=== PATIENT | male | born 1930 | race Caucasian/White ===

== ENCOUNTER 2017-03-11 10:52 | Emergency (ER) | payer MEDICARE ==
[~2017-03-11] VITALS: Ht 175.3 cm; Wt 77.3 kg
[~2017-03-11 10:52] MED LIST: ACET-171 PO; ANTI1CAP2 PO; CALC500T9 PO; CHOL100045 PO; DILT180C66 PO; DOCU250C2 PO; METO100T3 PO; OMEP20TA86 PO; OXYC1TAB24 PO; OXYC5TAB72 PO; POLY17PO6 PO; POTA15TA2 PO; SENN8.6C6 PO; TAMS0.4C29 PO; WARF5TAB7 PO; ZYL100 PO
[2017-03-11 10:56] VITALS: BP 122/68; PULSE 82; RESP 16; O2SAT 94
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
[2017-03-11 11:37] LABS: BASOPHILS % (AUTO) 0.2 % (0-3); EOSINOPHILS % (AUTO) 2.4 % (0-5); MONOCYTES % (AUTO) 10.3 % (4-12); Mean Corpuscular Hemoglobin 26.4 pg (27.0-35.0); Mean Corpuscular Volume 85.2 fL (81-100); NEUTROPHILS % (AUTO) 75.8 % (40-74); Platelet Count 135 bil/L (150-400)
[2017-03-11 11:54] LABS: INR 2.04 ratio
--- NOTE | 2017-03-11 11:55 | DRSVH ---
PROCEDURE: X-RAY CHEST ONE VIEW, PORTABLE ([id number]) INDICATIONS: ams TECHNIQUE: One view of the chest was acquired. COMPARISON: [facility], CT, CT CHEST W CON, 07/11/2015, 16:21. [facility], CR, XR CHEST 2VW, 11/11/2016, 9:48. [facility], CR, XR CHEST 1VW (PORTABLE), 02/27/2016, 1 4:09. FINDINGS: Surgical changes and devices: None. Lungs and pleura: The medial left lung apex is obscured by patient's neck soft tissues. There is a persistent small left pleural effusion which appears similar to the prior studies. Mild interstitial prominence is redemonstrated as well as linear opacities likely representing scarring. There is no definite acute consolidation. Mediastinum: Mediastinal contours appear unchanged. Heart size is at the upper limits of normal. Bones and chest wall: Multiple old healed left rib fractures are redemonstrated. Overlying soft tis sues appear unremarkable. IMPRESSION: 1. Persistent chronic small left pleural effusion, interstitial prominence, and scattered areas of s carring redemonstrated. No definite acute consolidation. Dictated by: Jordan Baron M.D. on 03/11/2017 at 10:48 Approved by: Jordan Baron M.D. on 03/11/2017 at 10:54
--- NOTE | 2017-03-11 12:00 | DRSVH ---
PROCEDURE: CT BRAIN WITHOUT CONTRAST ([id number]) INDICATIONS: tia sx TECHNIQUE: Noncontrast 4.5 mm thick angled axial sections acquired from the foramen magnum to the vertex, with c oronal reformats. COMPARISON: [facility], CT, BRAIN W/O CONTRAST, 01/27/2015, 14:25. FINDINGS: Image quality: Excellent. CSF spaces: Basal cisterns are patent. No extra-axial fluid collections. The ventricles are symmet ryan in size and shape. Brain: No intracranial bleeds or masses. There is cerebral volume loss for age, with resultant vent ricular and sulcal prominence. There are periventricular and deep white matter chronic small vessel ischemic changes. There is intracranial internal carotid artery atherosclerosis. Skull and face: Calvarium and visualized facial bones appear intact, without suspicious lesions. Sinuses: Visualized sinuses and mastoids are clear. IMPRESSION: 1. No acute intracranial process. 2. Moderate to severe atrophy and chronic microvascular ischemic changes. Dictated by: Tasia Porras M.D. on 03/11/2017 at 11:58 Approved by: Tasia Porras M.D. on 03/11/2017 at 11:59
[2017-03-11 12:08] VITALS: BP 123/65; PULSE 77; RESP 16; O2SAT 95
[2017-03-11 12:46] VITALS: BP 123/65; PULSE 77; RESP 16; O2SAT 95
== END 2017-03-11 12:40 | disposition home or self-care (01) ==
LOC: SED 10:52
DX: R55 Syncope and collapse (principal); R41.82 Altered mental status, unspecified; I48.2 Chronic atrial fibrillation; I38 Endocarditis, valve unspecified; M19.90 Unspecified osteoarthritis, unspecified site; K21.9 Gastro-esophageal reflux disease without esophagitis; I10 Essential (primary) hypertension; Z86.711 Personal history of pulmonary embolism; Z87.442 Personal history of urinary calculi; Z85.46 Personal history of malignant neoplasm of prostate; Z90.79 Acquired absence of other genital organ(s); Z87.828 Personal history of other (healed) physical injury and trauma; Z98.890 Other specified postprocedural states; Z87.891 Personal history of nicotine dependence; Z79.01 Long term (current) use of anticoagulants; Z88.0 Allergy status to penicillin; Z88.5 Allergy status to narcotic agent

== ENCOUNTER 2017-03-25 11:58 | Inpatient (IN) | payer MEDICARE ==
[~2017-03-25] VITALS: Ht 177.8 cm; Wt 79.1 kg
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
[2017-03-25 12:03] VITALS: BP 155/87; PULSE 67; RESP 18; O2SAT 93
[2017-03-25] MEDS ORDERED: Ondansetron 2 mg/mL 2 mL Inj IVPUSH PRN ×2 (12:15→13:50)
[2017-03-25] MEDS ORDERED: fentaNYL-PF 50 mCg/mL 2 mL Inj IVPUSH ONE (12:15)
[2017-03-25 12:20] LABS: BASOPHILS % (AUTO) 0.2 % (0-3); EOSINOPHILS % (AUTO) 2.6 % (0-5); MONOCYTES % (AUTO) 12.5 % (4-12); Mean Corpuscular Hemoglobin 26.4 pg (27.0-35.0); Mean Corpuscular Volume 85.8 fL (81-100); NEUTROPHILS % (AUTO) 73.7 % (40-74); Platelet Count 149 bil/L (150-400)
--- NOTE | 2017-03-25 13:06 | DRSVH ---
PROCEDURE: X-RAY PELVIS W/LAT HIP (RT) ([id number]) INDICATIONS: fall/rt hip pain TECHNIQUE: AP pelvis with lateral view(s) of the right hip(s). COMPARISON: None. FINDINGS: Bones: Comminuted, intertrochanteric right proximal femur fracture is noted. Postsurgical changes com patible with left hip arthroplasty and right pelvic fracture or mass noted. Soft tissues: The visualized bowel gas pattern is normal. No suspicious soft tissue calcifications. IMPRESSION: Displaced, comminuted, proximal right femur intertrochanteric fracture. Dictated by: Coty Chavira MD, PhD on 03/25/2017 at 13:03 Approved by: Coty Chavira MD, PhD on 03/25/2017 at 13:05
--- NOTE | 2017-03-25 13:07 | DRSVH ---
PROCEDURE: X-RAY CHEST ONE VIEW, PORTABLE ([id number]) INDICATIONS: fall/rt hip pain TECHNIQUE: One view of the chest was acquired. COMPARISON: [facility], CR, XR CHEST 1VW (PORTABLE), 03/11/2017, 11:33. FINDINGS: Surgical changes and devices: None. Lungs and pleura: No pleural effusions or pneumothorax. Lungs are clear of acute opacities. Mild bi lateral interstitial prominence stable compared to prior exam. Mediastinum: Mediastinal contours appear normal. Heart size is enlarged, but stable compared to kevin or examination. Bones and chest wall: No suspicious bony lesions. Overlying soft tissues appear unremarkable. IMPRESSION: No acute cardiopulmonary disease process. Dictated by: Coty Chavira MD, PhD on 03/25/2017 at 13:05 Approved by: Coty Chavira MD, PhD on 03/25/2017 at 13:06
--- NOTE | 2017-03-25 13:15 | DRSVH ---
PROCEDURE: CT HIP RIGHT W/O CONTRAST ([id number]) INDICATIONS: TRAUMA TECHNIQUE: Noncontrast 3 mm axial sections acquired through the bony pelvis. Additional 3 mm axial sections acq uired through the symptomatic hip joint, with coronal and sagittal reformats. COMPARISON: [facility], CT, CT HIP LT WO CON, 04/13/2016, 13:48. [facility], CT, PELVIS W/O CONTRAST, 06/30/2014, 23:57. FINDINGS: Image quality: Diagnostic. Beam hardening artifact from the left hip prosthesis and sacral screws no gonzalo. Bones: A comminuted intertrochanteric proximal right femur fracture is evident without intra-articula r extension. The bone mineralization is decreased. There are mild/moderate degenerative changes of the right hip joint. There is no dislocation of the right hip. Postoperative changes of the left hip are incidentally noted related to a left hip arthroplasty. Add itionally, there are 2 long fully threaded screws extending through the bilateral sacroiliac joints. Also, there is a long threaded screw extending along the superior right acetabulum and superior righ t pubic ramus. Orthopedic hardware is intact. The mineralization of the pelvic structures is decreased. There are prominent degenerative changes o f the included lower lumbar spine and sacroiliac joints. No acute pelvic fractures other than the ri ght hip fracture are evident. Chronic fractures of the bilateral superior and inferior pubic rami ar e present. Postoperative changes of the lower lumbar spine are noted. Soft tissues: Evaluation of the pelvic soft tissues is difficult related to metallic artifact. Ather osclerosis of the lower abdominal aorta and iliac arteries is present. No definite loculated fluid c ollection, free fluid, or free air is evident. Imaged bowel loops are nondilated. The urinary bladd er is not adequately seen. The prostate also is not adequately seen. IMPRESSION: 1. Intertrochanteric proximal right femur fracture. 2. Chronic pubic rami fractures. 3. Postoperative changes of the sacroiliac joints, lower lumbar spine, left hip, and superior right acetabulum/pubic ramus. Dictated by: Shad Arevalo M.D. on 03/25/2017 at 12:10 Approved by: Shad Arevalo M.D. on 03/25/2017 at 12:14
[2017-03-25 13:29] LABS: INR 2.2 ratio
[2017-03-25] MEDS ORDERED: Alum-Mag Hydrox-Simeth 30 mL Suspension PO PRN (13:50)
[2017-03-25] MEDS ORDERED: Polyethylene Glycol (PEG) 17 Gm Powder PO PRN (13:50)
[2017-03-25] MEDS ORDERED: WARF4TAB6 PO (13:53)
[2017-03-25] MEDS ORDERED: SENN-133 PO (13:57)
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
[2017-03-25 14:32] VITALS: BP 134/57; PULSE 66; RESP 18; O2SAT 95
[2017-03-25 14:53] VITALS: BP 134/57; PULSE 66; RESP 18; O2SAT 95
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
[2017-03-25 15:07] LABS: APPEARANCE,URINE HAZY (CLEAR,HAZY); COLOR,URINE YELLOW (YELLOW); OCCULT BLOOD,URINE NEGATIVE (NEGATIVE); UROBILINOGEN,URINE NORMAL (NORMAL)
[2017-03-25] MEDS ORDERED: Phytonadione (Adult) 10 mg/1 mL Inj PO ONE (15:10)
[2017-03-25 15:15] VITALS: BP 149/82; PULSE 68; RESP 16; O2SAT 98
[2017-03-25 15:17] VITALS: PULSE 66
[2017-03-25] MEDS ORDERED: Acetaminophen IV 1,000 MG in IV Premix 1 EACH IV ONE (15:25)
--- NOTE | 2017-03-25 15:45 | NUR ---
Admit To [facility] room 1030 via stretcher from ER. Report received from Sade Ramos. Patient is awake, oriented, complains of spasms in injured leg, but dozes to sleep quickly. PAIRER and 3L oxygen nc with sats 98%. Abrasions on bilat shins, L arm. No bruising noted. Neuro checks wnl.
[2017-03-25] MEDS ORDERED: oxyCODONE-Acetamin 5-325 mg Tablet PO PRN (15:50)
[2017-03-25] MEDS ORDERED: 0.9% Sodium Chloride 250 ML ONE (16:09)
[2017-03-25] MEDS: [UNRECOGNIZED DRUG - OTHER] PO SCH (16:18)
--- NOTE | 2017-03-25 18:15 | NUR ---
Pain IV Tylenol admin. Pt denies pain at rest, and with minimal movement of leg. Shouts out in pain with position changes, then immediately denies pain again at rest. IV morphine available to pre-medicate prior to next reposition. Currently on L side with heels floated.
[2017-03-25 19:24] VITALS: BP 152/80; PULSE 72; O2SAT 99
[2017-03-25] MEDS: Polyethylene Glycol (PEG) 17 Gm Powder PO SCH (19:45)
[2017-03-26] VITALS (10 sets, daily range): BP systolic 154–175; BP diastolic 67–106; PULSE 76–111; RESP 15–20; O2SAT 94–97
--- NOTE | 2017-03-26 01:27 | NUR ---
Pain/activity Pt reporting no right hip pain at rest but after repositioning pain up to 5/10, gave Oxycodone 5mg and pain came back down to 0/10. Repositioning pt q4 hrs throughout the night as tolerated. Pt has been NPO since midnight for surgery this morning at 0730. Agosto patent draining clear urine. Pt on 1L overnight to keep O2 sats above 92% with CPOx.
[2017-03-26 05:20] LABS: BASOPHILS % (AUTO) 0.2 % (0-3); MONOCYTES % (AUTO) 15.3 % (4-12); Mean Corpuscular Hemoglobin 26.1 pg (27.0-35.0); Mean Corpuscular Volume 86.4 fL (81-100); NEUTROPHILS % (AUTO) 75.6 % (40-74); Platelet Count 120 bil/L (150-400)
[2017-03-26 05:32] LABS: INR 1.85 ratio
[2017-03-26 05:38] LABS: Magnesium 1.9 mg/dL (1.6-2.6)
[2017-03-26] MEDS ORDERED: CeFAZolin Inj 2 GM in IV Premix 1 EACH IV SCH (06:00)
--- NOTE | 2017-03-26 06:00 | NUR ---
Preop antibiotic IV Ancef was given this morning at 0600 (1 hr before surgery as ordered) since patient was on the OR Board for 0730 surgery (this nurse checked at 0600 before hanging antibiotic) and this time was also passed on in report last night.
[2017-03-26] MEDS: Pantoprazole 20 mg ER24 Tablet PO SCH (06:30)
[2017-03-26] MEDS: 0.9% Sodium Chloride 250 ML IV SCH ×2 (07:45→08:01)
[2017-03-26] MEDS: [UNRECOGNIZED DRUG - OTHER] PO SCH (09:41)
[2017-03-26] MEDS: Polyethylene Glycol (PEG) 17 Gm Powder PO SCH ×3 (09:41→23:47)
[2017-03-26] MEDS: Diltiazem CD 180 mg ER24 Capsule PO SCH (10:01)
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
[2017-03-26 12:06] LABS: Mean Corpuscular Hemoglobin 26.5 pg (27.0-35.0); Mean Corpuscular Volume 85.9 fL (81-100)
[2017-03-26 12:28] LABS: INR 1.51 ratio
[2017-03-26] MEDS: 0.9% Sodium Chloride 1,000 ML IV SCH ×2 (13:49→17:05)
--- NOTE | 2017-03-26 13:50 | NUR ---
FFP Pt tolerated 2 units of FFP. Pt had some itching at the end of the second unit. MD ordered Benadryl and the pt stated, "the itching decreased."
--- NOTE | 2017-03-26 14:58 | PCM.PHAPRO ---
Progress Ground-level fall/1 hr Right hip pain/1hr WARFARIN DOSING PER PHARMACY (currently discontinued) Indication: Afib Goal INR: 2-3 Home dose: Warfarin 4mg PO daily Additional Anticoagulation: Enoxaparin 40 mg SQ daily Of note: Pt's surgery was delayed due to INR (not below 1.5). The initial warfarin dose that was prescribed last night was not given due to rescheduling of surgery for today (03/27). Will continue to follow to see when MD decides to reinitiate warfarin again, thank you. Nanci Carpio PharmD Mar 26, 2017 14:58 INR change Warf Dose 4 Will give one time dose of warfarin 4mg PO tonight (dosing it at a later time due to surgery) Pharmacy will continue to follow, thank you. Nanci Carpio PharmD Mar 26, 2017 14:58
[2017-03-26] MEDS: CeFAZolin Inj 2 GM in IV Premix 1 EACH IV SCH ×2 (15:00→22:58)
[2017-03-26 15:20] LABS: INR 1.47 ratio
--- NOTE | 2017-03-26 15:27 | NUR ---
Social Work- Brief Note Data: EMR reviewed. Pt is a 86 year old male admitted 03/25/17 for right hip fracture per H&P. Pt's insurance is [employer] [place] [employer] and PCP is Naveen Clay MD. Pt's NOK is Andra Lemus, caregiver, . SW met with pt briefly at bedside regarding discharge plan, SW role explained. Pt alert and oriented x3 though very hard of hearing. Pt resides in [place], [facility] where he has a caregiver to prepare his meals, transport to appointments, and complete housekeeping. Pt uses a walker at baseline and does not drive. SW received order from for SNF placement, SW discussed this with pt. SNF CHOICE LIST PROVIDED. Pt requested that FOOD AND BEVERAGE ATTENDANT come back tomorrow to talk more about discharge plan. SW to return in AM to discuss SNF recommendation and pt's discharge plan. Assessment: Pt for whom SNF is medically necessary Plan: Per pt, SW to return to discuss in AM pt's discharge plan and SNF preference. SW will continue to follow. ELSA Umana
--- NOTE | 2017-03-26 15:30 | NUR ---
SNF CHOICE LIST PROVIDED. Masha Whitt MSW
[2017-03-26] MEDS ORDERED: Bacitracin 50,000 unit Inj ONE (15:42)
--- NOTE | 2017-03-26 18:15 | NUR ---
RN did vitals with blood work Addendum: 03/26/17 at 1817 by ALYSA HUGGINS CNA Amended: Links added.
--- NOTE | 2017-03-26 19:54 | PCM.PNORTH ---
Subjective Date of Service: Mar 26, 2017 Visit Information: Reason for Visit Right Hip Fracture Surgery/Surgery Date Post-Op Day # Date of Admission: Mar 25, 2017 at 14:09 Hospital Day # Subjective PT doing well with minimal pain, per anesthesia, pt poor candidate for intubation given medical comorbidities; prefer spinal; however INR must be under 1.2-1.4 and currently INR 1.49. Decision was made to continue reversal of INR until anesthesia is okay with performing spinal and proceeding with surgery. Pt is doing well today, tolerating PO, comfortable, with no changes in his NV function Objective Exam Objective CONST: WD,WN, NAD, A+OX3 OCULAR: EOMI, no conjunctivitis/icterus ENT: no deformities, scars or lesions CARDIAC: Pulse is regular. No cyanosis,clubbing,edema RESP: regular,unlabored MSK: normal light touch SPN/DPN/TN distributions. 5/5 DF/PF/Inv/Ev, 2+ DP Right HIP - scars.+ swelling, - erythema - atrophy, shortened, externally rotated ROM logroll-painful Strength deferred - calf tenderness Vital Signs and I/O Vital Sign - Last Date Time Temp Pulse Resp B/P Pulse Ox O2 Delivery O2 Flow Rate FiO2 03/26/17 13:45 36.6 93 16 154/87 03/26/17 09:26 Supplement Oxygen 03/26/17 05:50 96 1.00 Intake and Output 03/25/17 03/25/17 03/26/17 Cumulative From/Thru 15:00 23:00 07:00 03/25/17 12:03 - 03/26/17 06:40 Intake Total 600 ml 842 ml 1442 ml Output Total 300 ml 725 ml 1025 ml Balance 300 ml 117 ml 417 ml Intake Oral 600 ml 600 ml 1200 ml IV Total 242 ml 242 ml Output Urine Total 300 ml 725 ml 1025 ml # Bowel Movements 0 0 Lab & Micro Results Laboratory Tests Test 03/26/17 05:00 03/26/17 11:59 03/26/17 14:59 White Blood Count 6.2th/mm3 (3.8-10.1) 6.2th/mm3 (3.8-10.1) Red Blood Count 4.33mil/mm3 (4.40-5.80) 4.34mil/mm3 (4.40-5.80) Hemoglobin 11.3g/dL (13.8-17.2) 11.5g/dL (13.8-17.2) Hematocrit 37.4% (41.0-50.0) 37.3% (41.0-50.0) Mean Corpuscular Volume 86.4fL (81-100) 85.9fL (81-100) Mean Corpuscular Hemoglobin 26.1pg (27.0-35.0) 26.5pg (27.0-35.0) Mean Corpuscular Hemoglobin Concent 30.2% (32.0-37.0) 30.8% (32.0-37.0) Red Cell Distribution Width 16.8% (12.3-15.4) 16.8% (12.3-15.4) Platelet Count 120bil/L (150-400) 107bil/L (150-400) Neutrophils (%) (Auto) 75.6% (40-74) Lymphocytes (%) (Auto) 7.6% (14-46) Monocytes (%) (Auto) 15.3% (4-12) Eosinophils (%) (Auto) 1.0% (0-5) Basophils (%) (Auto) 0.2% (0-3) Prothrombin Time 20.1sec (8.1-12.5) 16.3sec (8.1-12.5) 15.8sec (8.1-12.5) Prothromb Time International Ratio 1.85ratio 1.51ratio 1.47ratio Sodium Level 138mEq/L (134-144) Potassium Level 4.3mEq/L (3.5-5.2) Chloride Level 102mEq/L (97-108) Carbon Dioxide Level 25mmol/L (18-29) Blood Urea Nitrogen 16mg/dL (8-27) Creatinine 0.95mg/dL (0.76-1.27) Estimat Glomerular Filtration Rate 80mL/min (>59) Glucose Level 142mg/dL (60-99) Calcium Level 8.9mg/dL (8.5-10.1) Magnesium Level 1.9mg/dL (1.6-2.6) Total Bilirubin 1.9mg/dL (0.0-1.2) Aspartate Amino Transf (AST/SGOT) 25U/L (0-50) Alanine Aminotransferase (ALT/SGPT) 12U/L (0-44) Alkaline Phosphatase 79U/L (25-160) Total Protein 6.1g/dL (6.4-8.4) Albumin 3.7g/dL (3.4-5.0) Result Diagram: 03/26/17 1159 03/26/17 0502 Additional Information Two-view x-ray of the right hip demonstrates a displaced right intertrochanteric hip fracture, with previous pelvic and hardware and left hip arthroplasty CT scan of the right hip demonstrate displaced intertrochanteric hip fracture with comminution. Assessment & Plan Impression Right intertrochanteric hip fracture Problems: Plan Nonweightbearing right lower extremity Pain medications for comfort SCD/LISA hose for DVT prophylaxis Please transition over to heparin versus Lovenox for DVT prophylaxis Please optimize medical care prior to surgery tomorrow Nothing by mouth after midnight for right hip closed reduction intramedullary nail fixation tomorrow Please reverse INR accordingly for surgery tomorrow- anesthesia on board for spinal, start resume warfarin after surgery Continue medical management per primary Please call with questions Please keep the affected extremity elevated when possible. You may use ice and/or heat as needed for comfort. All questions and concerns were addressed. Please feel free to call with any further questions, comments, and/or concerns. Risks and complications of surgery as well as nonsurgical treatment discussed with patient and family, informed consent obtained today. Resuscitation Status: DNR/DNI:Do Not Resuscitate/Intubate Gino Carl MD Mar 26, 2017 19:54
[2017-03-27] VITALS (17 sets, daily range): BP systolic 93–166; BP diastolic 51–94; PULSE 69–98; RESP 14–19; O2SAT 93–99
[2017-03-27] MEDS ORDERED: fentaNYL-PF 50 mCg/mL 2 mL Inj ONE (05:40)
--- NOTE | 2017-03-27 05:48 | NUR ---
Confusion On initial assessment, patient was not oriented to place or date. Patient appeared confused to whereabouts. Patient assured that he was at the hospital . Patient was hesitant at first about taking pm medications. RN had to convince patient that taking medications was physicians orders. VSS. NPO after midnight. Call light within reach. Care continues.
[2017-03-27] MEDS: Pantoprazole 20 mg ER24 Tablet PO SCH (06:30)
[2017-03-27 06:54] LABS: INR 1.25 ratio
[2017-03-27] MEDS: 0.9% Sodium Chloride 250 ML IV SCH (07:45)
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
[2017-03-27] MEDS: [UNRECOGNIZED DRUG - OTHER] PO SCH (08:30)
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
--- NOTE | 2017-03-27 12:15 | NUR ---
Pt to OR Report called to Terese ONSITE CASE MANAGER. Will transport on own bed. Family and caregiver notified.
[2017-03-27] MEDS ORDERED: Ropivacaine-PF 0.5% 30 mL Inj INFILTRATE ONE (12:45)
[2017-03-27] MEDS ORDERED: Bacitracin 50,000 unit Inj IRRIGATION ONE (12:45)
--- NOTE | 2017-03-27 12:54 | NUR ---
pt is in OR Addendum: 03/27/17 at 1255 by ALYSA HUGGINS CNA Amended: Links added.
[2017-03-27] MEDS ORDERED: Lactated Ringer's 1,000 ML IV ONE (13:06)
--- NOTE | 2017-03-27 13:33 | NUR ---
spiritual care; pt request pt hard of hearing, engaged easily however with clear and loud speaking style. Pt reflected on his past several years of extensive medical care in hospital and snfs. 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 Pt appeared comfortable, laughed often, Pt shared his thoughts about upcoming surgery."If i , i " and expressed gratitude for spiritual care. blessing
[2017-03-27] MEDS ORDERED: Lactated Ringer's 500 ML IV PRN (13:41)
[2017-03-27] MEDS ORDERED: Lactated Ringer's 1,000 ML IV SCH (13:41)
[2017-03-27] MEDS ORDERED: HYDROmorphone 1 mg/mL Inj IVPUSH PRN (13:45)
[2017-03-27] MEDS ORDERED: Dexamethasone 4 mg/mL Inj IVPUSH PRN (13:45)
[2017-03-27] MEDS ORDERED: Phenylephrine 10,000 mCg/mL Inj IVPUSH PRN (13:45)
[2017-03-27] MEDS ORDERED: MetoCLOpramide 5 mg/mL 2 mL Inj IVPUSH PRN ×2 (13:45→14:40)
[2017-03-27] MEDS ORDERED: EPHEDrine Sulfate 50 mg/mL Inj IVPUSH PRN (13:45)
[2017-03-27] MEDS ORDERED: Labetalol 5 mg/mL 4 mL Inj IV PRN (13:45)
[2017-03-27] MEDS ORDERED: Ondansetron 2 mg/mL 2 mL Inj IVPUSH PRN (13:45)
[2017-03-27] MEDS ORDERED: Atropine 0.4 mg/mL Inj IVPUSH PRN (13:45)
[2017-03-27] MEDS ORDERED: fentaNYL-PF 50 mCg/mL 2 mL Inj IVPUSH PRN (13:45)
--- NOTE | 2017-03-27 13:48 | NUR ---
GENE signed @ 1022AM
[2017-03-27] MEDS ORDERED: diphenhydrAMINE 25 mg Capsule PO PRN (14:40)
[2017-03-27] MEDS ORDERED: Sodium Biphos-Phos 133 mL Enema RECTAL PRN (14:40)
[2017-03-27] MEDS ORDERED: Ketorolac 15 mg/mL Inj IVPUSH PRN (14:40)
[2017-03-27] MEDS ORDERED: Polyethylene Glycol (PEG) 17 Gm Powder PO PRN (14:40)
--- NOTE | 2017-03-27 14:49 | PCM.ORTHOP ---
Orthopedic Operative Report Date of Service: Mar 26, 2017 Pre Operative Diagnosis Right hip intertrochanteric fracture Post Operative Diagnosis Same Procedure Right hip closed reduction cephalo-medullary nail fixation Surgeon Surgeon: Gino Carl Assistants: None Indication for Procedure Right hip fracture Findings Per dictation Details of Procedure Implant: synthes nail TFNA 12mmX 440mm, 105mm TFNA lag screw, 64mmX 5mm locking screw Indications: This is Osmar Osuna who is status-post a right intertrochanteric hip fracture. The risks versus benefits of open reduction and internal fixation were discussed with the patient in detail. The patient voiced understanding of the risks and agreed to proceed. The risks discussed were pain, bleeding, infection, damage to neurovascular structures, failure of procedure, need for further procedures, loss of limb function, loss of limb, heart attack, stroke, and . Verbal and written consent were obtained. Description of Operation: The patient was brought to the operating room. Patient name and surgical site were confirmed. Preoperative antibiotics were given. General anesthesia was administered. The patient was placed supine on the fracture table in the standard fashion. All bony prominences were well padded. Traction was applied to the operative leg and the fracture was closed reduced under C-arm guidance. The leg and hip were then prepped and draped in the usual sterile fashion. A small longitudinal incision was made proximal to the greater trochanter. Subcutaneous dissection was bluntly performed down to the tip of the greater trochanter. A 3.2 mm guide pin was then placed through the tip of the greater trochanter and into the femoral canal under fluoroscopic guidance. This was checked in both AP and lateral views. This pin was then over-reamed with a 17 mm reamer. The ball tipped guide wire was placed into the medullary canal and advanced into the center of the distal metaphysis. The guide wire was then over-reamed in 0.5 mm increments until bony chatter was achieved at the isthmus. A tire gauge was used to determine the length of the nail. The nail implant was loaded onto the insertion jig and then gently malleted into position over the guide wire. The fracture was well reduced as confirmed with C-arm in AP and lateral views. The guide was removed. The guide pin for the hip screw was inserted to a point within 25 mm tip-to-apex distance on AP and lateral views. The hip screw size was selected along with a compression screw. The lateral cortex was drilled for the compression screw. The guide pin was then overdrilled and the hip screw was inserted with clear compression at the fracture once the compression screw inserted and engaged. The traction was removed and orthogonal views with fluoroscopy determined reduction of our fracture with appropriate placement of hip screw centered with a tip-to-apex distance less than 25 mm. The distal interlocking screw was then inserted in the standard fashion using the perfect [place] technique under C-arm guidance. All wounds were thoroughly irrigated by bulb irrigation. Hemostasis was obtained with electrocautery. The fascia was closed with 0 Vicryl suture. The subcutaneous space was closed with interrupted 2-0 Vicryl suture. The skin was closed with interrupted armando. Hard copy radiographs confirmed adequate reduction and placement of hardware. The patient was extubated without difficulty and transferred to the PACU in stable condition. I was present and scrubbed for the entire procedure. Description of Findings: right intertrochanteric fracture with osteopenia Specimens Obtained: none You may WBAT. Keep your wound clean, dry and intact. We will change your dressing in 2 days and continue daily dressing changes PT/OT will be ordered. Return to clinic in 2 weeks with me with 2 view x-rays and staple/suture removal with Steri-Strips application. You may get your wound wet at that time. Please keep the affected extremity elevated when possible. You may use ice and/or heat as needed for comfort. All questions and concerns were addressed. Please feel free to call with any further questions, comments, and/or concerns. Grafts, Implants: Implants-See Implant Record Complications There were no periprocedural complications identified. Condition Stable Anesthetic Administered: GA Catheters: None Output, Estimated Blood Loss: 50 Blood Admin during surgery: No Surgical Cast or Splint: Other Surgical Specimen Removed: No Specimen sent to Pathology: No copies to: Gino Carl MD, Christopher L MD Mar 27, 2017 14:49
[2017-03-27] MEDS ORDERED: Magnesium Hydroxide 10 mL Oral Concentration PO PRN (14:55)
--- NOTE | 2017-03-27 15:13 | NUR ---
Social Work- Update Note Data: EMR reviewed. Pt is a 86 year old male admitted 03/25/17 for right hip fracture per H&P. Pt's surgery was delayed until today. When SHUTDOWN COORDINATOR attempted to follow up with pt he was in surgery. SW will follow up with pt to complete assessment and engage in discharge planning. PT evaluation is pending until after surgery. SW continues to follow. Assessment: Pt for whom SNF is medically necessary Plan: Pt was in surgery when SHUTDOWN COORDINATOR attempted to complete assessment. SW will follow up with pt to complete assessment and engage in discharge planning. PT evaluation is pending until after surgery. SW continues to follow. ELSA Umana
--- NOTE | 2017-03-27 15:30 | PCM.ANEP1 ---
Post Anesthesia PACU Phase 1 Assessment Vital Signs Vital Signs Date Time Temp Pulse Resp B/P Pulse Ox O2 Delivery O2 Flow Rate FiO2 03/27/17 15:22 14 97 03/27/17 14:50 84 18 103/61 98 Simple Mask 10 03/27/17 14:45 82 19 103/61 98 Simple Mask 10 03/27/17 14:40 74 15 93/51 98 Simple Mask 10 03/27/17 14:35 36.8 80 14 96/53 99 Simple Mask 10 03/27/17 10:43 Supplement Oxygen 03/27/17 09:54 36.7 94 18 166/94 94 Room Air 03/27/17 08:00 93 Anesthetic Administered: GA, SAB Level of Alertness: Awake, talking MEDINA's with Equal Strength: No Pain: No Pain Scale Score: 7 Nausea or Vomiting: No CV Function & Hydration Stable: Yes Airway Device: Oxygen Delivery: Simple Mask Lungs: Clear to Auscultation, Normal Air Movement Dermatome Level: T10 (Umbilicus) PACU Phase 2 Assessment Complications: No Follow up Care: No Patient Instructions Provided: N/A Christine Curry MD Mar 27, 2017 15:30
--- NOTE | 2017-03-27 16:24 | NUR ---
HR/O2 Saturation Patient with elevated HR sustaining >140. Reported to MD. Restarted all am meds including early night dose of Metoprolol and Cardizem. IVP 1mg Cardizem also ordered if HR sustained above 130. One hour reassessment, HR at 101. Held IVP additional Cardizem at this time. In addition, patient having difficulty sustaining Sp02 sats above 90 on 4-6L NC. Switched to Oxymask at 4-6L and pt now sats 92-95%. Will attempt to titrate.
[2017-03-27] MEDS ORDERED: Diltiazem 5 mg/mL 5 mL Inj IVPUSH ONE (16:55)
[2017-03-27] MEDS: HYDROcodone-APAP 7.5-325 mg Tablet PO PRN (17:03)
[2017-03-27] MEDS: Polyethylene Glycol (PEG) 17 Gm Powder PO SCH ×2 (17:03→19:48)
[2017-03-27] MEDS: Diltiazem CD 180 mg ER24 Capsule PO SCH (17:03)
[2017-03-27] MEDS: 0.9% Sodium Chloride 1,000 ML IV SCH (17:04)
[2017-03-27] MEDS: Senna-Docusate 8.6-50 mg Tablet PO SCH (20:04)
[2017-03-27] MEDS: CeFAZolin Inj 2 GM in IV Premix 1 EACH IV SCH (22:16)
[2017-03-28] VITALS (11 sets, daily range): BP systolic 89–122; BP diastolic 50–75; PULSE 60–104; RESP 16–22; O2SAT 93–100
--- NOTE | 2017-03-28 03:25 | NUR ---
O2 Saturation/Pain Able to titrate O2 down from 4L to 2L NC at beginning of shift. O2 sats around 93-94% while awake. When sleeping, O2 sats down to 90% on 2L NC. Oxymask placed and O2 titrated up to 3L. Now sat'ing @ 95-96%. Denies any pain or discomfort when awake. Noticable discomfort with repositioning, but states he doesn't have any pain when done moving. Refusing pain med offers at this time.
[2017-03-28] MEDS: 0.9% Sodium Chloride 1,000 ML IV SCH ×3 (04:33→19:51)
[2017-03-28] MEDS: Pantoprazole 20 mg ER24 Tablet PO SCH ×2 (05:20→11:48)
--- NOTE | 2017-03-28 05:28 | NUR ---
Urine Output Urine output in Agosto only 125 ml this shift. Pt has NS running @ 80 ml/hr. FYI page sent to Dr. Calhoun @ [phone].
[2017-03-28 06:21] LABS: BASOPHILS % (AUTO) 0.3 % (0-3); EOSINOPHILS % (AUTO) 2.9 % (0-5); MONOCYTES % (AUTO) 12.7 % (4-12); Mean Corpuscular Hemoglobin 26.7 pg (27.0-35.0); Mean Corpuscular Volume 86.9 fL (81-100); Platelet Count 99 bil/L (150-400)
[2017-03-28 06:33] LABS: INR 1.26 ratio
[2017-03-28 06:52] LABS: Magnesium 1.7 mg/dL (1.6-2.6)
[2017-03-28] MEDS: CeFAZolin Inj 2 GM in IV Premix 1 EACH IV SCH (07:55)
--- NOTE | 2017-03-28 08:05 | PCM.PNORTH ---
Subjective Date of Service: Mar 28, 2017 Visit Information: Reason for Visit Right Hip Fracture Surgery/Surgery Date Right hip IM Nail 03/27/2017 Post-Op Day # 1 Date of Admission: Mar 25, 2017 at 14:09 Hospital Day # Subjective Patient is sleeping and not arousable to name Objective Exam Objective Patient is seen laying in bed. He is asleep and not arousable to name or shaking. Vital Signs and I/O Vital Sign - Last Date Time Temp Pulse Resp B/P Pulse Ox O2 Delivery O2 Flow Rate FiO2 03/28/17 05:41 86 03/28/17 05:16 37.2 22 96/58 93 OxyMask 3.00 Intake and Output 03/27/17 03/27/17 03/28/17 Cumulative From/Thru 15:00 23:00 07:00 03/25/17 12:03 - 03/28/17 06:16 Intake Total 1100 ml 1400 ml 1001 ml 6977 ml Output Total 750 ml 2600 ml 125 ml 5700 ml Balance 350 ml -1200 ml 876 ml 1277 ml Intake Oral 200 ml 840 ml 200 ml 2940 ml IV Total 900 ml 560 ml 801 ml 3579 ml FFP 458 ml Output Urine Total 650 ml 2600 ml 125 ml 5600 ml Estimated Blood Loss 100 ml 100 ml # Bowel Movements 0 0 0 0 Lab & Micro Results Laboratory Tests Test 03/28/17 06:00 White Blood Count 6.5th/mm3 (3.8-10.1) Red Blood Count 3.60mil/mm3 (4.40-5.80) Hemoglobin 9.6g/dL (13.8-17.2) Hematocrit 31.3% (41.0-50.0) Mean Corpuscular Volume 86.9fL (81-100) Mean Corpuscular Hemoglobin 26.7pg (27.0-35.0) Mean Corpuscular Hemoglobin Concent 30.7% (32.0-37.0) Red Cell Distribution Width 16.8% (12.3-15.4) Platelet Count 99bil/L (150-400) Neutrophils (%) (Auto) 77.0% (40-74) Lymphocytes (%) (Auto) 6.8% (14-46) Monocytes (%) (Auto) 12.7% (4-12) Eosinophils (%) (Auto) 2.9% (0-5) Basophils (%) (Auto) 0.3% (0-3) Prothrombin Time 13.5sec (8.1-12.5) Prothromb Time International Ratio 1.26ratio Sodium Level 138mEq/L (134-144) Potassium Level 4.1mEq/L (3.5-5.2) Chloride Level 102mEq/L (97-108) Carbon Dioxide Level 24mmol/L (18-29) Blood Urea Nitrogen 24mg/dL (8-27) Creatinine 1.44mg/dL (0.76-1.27) Estimat Glomerular Filtration Rate 49mL/min (>59) Glucose Level 126mg/dL (60-99) Calcium Level 8.0mg/dL (8.5-10.1) Magnesium Level 1.7mg/dL (1.6-2.6) Result Diagram: 03/28/17 0600 03/28/17 0600 Extremities: Distal Pulses Palpable, Warm, No Compartment Syndrom Noted SURGICAL WOUND : Wound Location/Description Lateral right hip/thigh: dressing are clean, dry and intact Activity: Activity per PT Catheters: Urethral 2 Way Agosto Assessment & Plan Impression status post right hip IM nail POD #1 Problems: Plan Weight bearing as tolerated DVT prophylaxis: Lovenox to bridge until warfarin is therapeutic Dressing: PA will change dressing tomorrow Start PT for transfers, progressive ambulation, ther ex Discharge plan: SNF in 1-2 days when medically stable Follow up plan: at 2 weeks post op at [facility] with Dr. Carl Pain Management: Toradol, Harvey 7.5/325 mg VTE Prophylaxis: Sub-Q Enoxaparin, Theraputic Anticoag with Warfarin, SCDs Resuscitation Status: DNR/DNI:Do Not Resuscitate/Intubate Melissa Wilder PA-C Mar 28, 2017 08:05
[2017-03-28] MEDS ORDERED: 0.9% Sodium Chloride 500 ML IV ONE (08:15)
[2017-03-28] MEDS: [UNRECOGNIZED DRUG - OTHER] PO SCH (08:30)
[2017-03-28] MEDS: Diltiazem CD 180 mg ER24 Capsule PO SCH (08:30)
[2017-03-28] MEDS: Polyethylene Glycol (PEG) 17 Gm Powder PO SCH ×2 (10:17→19:54)
[2017-03-28] MEDS: HYDROcodone-APAP 7.5-325 mg Tablet PO PRN (10:21)
[2017-03-28] MEDS ORDERED: Acetaminophen IV 1,000 MG in IV Premix 1 EACH IV ONE (10:35)
--- NOTE | 2017-03-28 11:27 | PCM.PHAPRO ---
Progress Ground-level fall/1 hr Right hip pain/1hr WARFARIN DOSING PER PHARMACY and ENOXPARIN DOSING PER PHARMACY Indication: Afib, HX of PE Home dose: 4 mg PO daily INR Goal: 2-3 Hct/plt 31.3/99 Additional anticoagulation: Enoxaparin 80 mg SQ BID DI: Allopurinol Scr: 1.44 CrCl ~ 37 Of Note: Pt received 5mg PO vitamin K on 03/25 Date INR 1.26 INR change Warf Dose 6 A: Increase in SCr and decrease in plts - MD is aware and monitoring P: Will give one time dose of warfarin 6mg PO tonight. Expect INR to remain low with residual from vitamin K administration Pharmacy will continue to monitor INR/CBC/signs and symptoms of bleeding, thank you Nanci Carpio PharmD Mar 28, 2017 11:27
[2017-03-28] MEDS: Senna-Docusate 8.6-50 mg Tablet PO SCH ×2 (11:47→20:37)
--- NOTE | 2017-03-28 11:52 | NUR ---
Evaluation completed. Please go to "Notes" then click on "Assessments and Notes" (bottom left corner of screen). Then select appropriate discipline tab on top of screen.
--- NOTE | 2017-03-28 12:15 | NUR ---
BP/Urine output Urine output 125cc overnight and morning labs show elevated creatinine. Dr. Harding notified at start of shift and fluid bolus given. NS rate increased to 125mls/hr and plan to keep Gaosto catheter until kidney function improves. Ketorolac DC'd and will be cautious of nephrotoxic medications. He has also been hypotensive overnight and this morning. BP at 1000 was 102/60 with HR of 95, per Dr. Harding, Cardizem withheld and Metoprolol given as pt had HR in 140s the night before. Will continue to monitor closely.
--- NOTE | 2017-03-28 12:15 | NUR ---
Social Work: Continued Discharge Planning D: EMR reviewed. Pt is on day 3 of hospitalization. SW attempted to meet with pt to discuss SNF choices after receiving MD order. Pt was not alert and fell asleep during conversation. SW attempted to wake pt, but pt would not wake. Pt uses hearing aids and SW discussed whether or not pt needed new batteries with RN. Pt was not able to hear SW when SW was close to pt attempting to talk. RN told SW that pt's caregiver is not communicating with family. SW attempted to contact pt's son, Bridger ([phone]) to discuss SNF options. Pt's son did not answer. SW will continue to follow for SNF choice. A: Pt for whom a SNF has been deemed medically necessary. P: F/U with pt, family, and caregiver to determine SNF placement. ELSA Garg
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
[2017-03-28] MEDS ORDERED: 0.9% Sodium Chloride 1,000 ML IV ONE ×3 (13:10→15:40)
--- NOTE | 2017-03-28 15:41 | DRSVH ---
PROCEDURE: X-RAY CHEST ONE VIEW, PORTABLE ([id number]) INDICATIONS: dyspnea TECHNIQUE: One view of the chest was acquired. COMPARISON: [facility], CR, XR CHEST 1VW (PORTABLE), 03/11/2017, 11:33. FINDINGS: Surgical changes and devices: None. Lungs and pleura: The pulmonary vascularity is increased. Partial obscuration of the left diaphragm appears to be present related to a subtle left basilar density. No lobar consolidation or pneumothor ax is evident. Mediastinum: Mediastinal contours appear normal. Heart size is enlarged. There is aortic atheroscl erosis. Bones and chest wall: No suspicious bony lesions. Overlying soft tissues appear unremarkable. IMPRESSION: Cardiomegaly and moderate vascular congestion is suspicious for developing pulmonary carmelo a. Superimposed left basilar pneumonia/atelectasis may be present. Dictated by: Shad Arevalo M.D. on 03/28/2017 at 14:39 Approved by: Shad Arevalo M.D. on 03/28/2017 at 14:39
--- NOTE | 2017-03-28 15:59 | ABG ---
DateTimeAnalyzed 15:51:20 -_ pH ____7.427 - pCO2 ___37.2__ -mmHg pO2 149 -mmHg HCO3- ___24.5__ -mmol/L 22.0 26.0 ABE ____0.1__ -mmol/L tHb ____8.6__ -g/dL O2Hb ___96.3__ -% COHb ____4.4__ -% 1.5 MetHb ____0.1__ -% FIO2 ___21.0__ -% Drawn By lab - Date/Time Notified____ 15:58:00 -_ Notified By btl - Notified Whom ___Dr. Mehdi - K+ ____3.7__ -mmol/L Balwinder test N/A -
[2017-03-28 16:15] LABS: EOSINOPHILS % (AUTO) 3.6 % (0-5)
[2017-03-28 16:20] LABS: BASOPHILS % (AUTO) 0.4 % (0-3); Mean Corpuscular Hemoglobin 26.4 pg (27.0-35.0); Mean Corpuscular Volume 88.2 fL (81-100); NEUTROPHILS % (AUTO) 71.9 % (40-74); Platelet Count 90 bil/L (150-400)
[2017-03-28 16:48] LABS: Magnesium 1.7 mg/dL (1.6-2.6); Phosphorus 3.5 mg/dL (2.5-4.9)
[2017-03-28 17:01] LABS: TROPONIN T 0.082 ug/L (0.0-0.011)
--- NOTE | 2017-03-28 18:58 | DRSVH ---
PROCEDURE: CT ANGIO CHEST PULMONARY EMBOLISM ([id number]) INDICATIONS: hypotension,suspect PE TECHNIQUE: After the administration of intravenous contrast, 2 mm thick sections acquired from the pulmonary api aby to the posterior costophrenic angles. 3-dimensional maximum intensity projection (MIP) coronal a nd sagittal reformats were then acquired through the thorax. For radiation dose reduction, the follo wing was used: automated exposure control, adjustment of mA and/or kV according to patient size. COMPARISON: [facility], CT, CT CHEST W CON, 07/11/2015, 16:21. FINDINGS: Image quality: There is streak artifact from intravenous contrast in the right subclavian vein and navas perior vena cava. Pulmonary arteries: Pulmonary arteries demonstrate no intraluminal filling defects to suggest centra l pulmonary embolism with limited evaluation of subsegmental branches in the lung bases do to subopti mal contrast opacification. There is enlargement of the pulmonary arteries suggesting pulmonary phong rial hypertension. Lungs and pleura: There are bilateral pleural effusions, small to moderate in size on the left and sm all on the right with associated compressive atelectasis. There also linear opacities likely represe nting scarring in the lung bases. Mediastinum: Heart size is enlarged, without pericardial effusion. Thoracic aorta is normal in ale jailyn and enhancement. There are multiple mildly prominent subcentimeter mediastinal lymph nodes which are likely reactive. Esophagus is normal in caliber, without hiatal hernia. Bones and chest wall: No suspicious bony lesions. There are multiple old healed left rib fractures. No axillary or supraclavicular adenopathy. Abdomen: Visualized upper abdomen demonstrates reflux of contrast into the inferior vena cava and he patic veins suggesting elevated right heart filling pressures. There is splenomegaly with the visual ized spleen measuring up to 15.7 cm. IMPRESSION: 1. No evidence of central pulmonary embolism, with evaluation limited in the lung bases due to subop timal contrast opacification of subsegmental branches. 2. Enlargement of the pulmonary arteries suggesting pulmonary arterial hypertension. 3. Bilateral pleural effusions with associated compressive atelectasis. 4. Splenomegaly demonstrated in the upper abdomen. Dictated by: Jordan Baron M.D. on 03/28/2017 at 18:44 Approved by: Jordan Baron M.D. on 03/28/2017 at 18:56
--- NOTE | 2017-03-28 19:05 | NUR ---
Transfer [place] [facility] [place] [facility] Oriented pt arrived on floor at [address] Pt is CHILKAT. Pt denies pain. On oximask (mouth breather). Family at bedside. Personal walker in room. IVF infusing. Agosto patent-oumou urine draining. VSS. Will continue to monitor.
--- NOTE | 2017-03-28 20:28 | DRSVH ---
PROCEDURE: US RETROPERITONEAL SONOGRAM ([id number]) INDICATIONS: JOVANY TECHNIQUE: Real-time scanning was performed of the kidneys and bladder, with image documentation. COMPARISON: None. FINDINGS: Kidneys: Right kidney measures 10.9 cm long; left kidney measures 11.2 cm long. Right renal cortica l thickness is 1.4 cm; left renal cortical thickness is 1.4 cm. Renal cortical echotexture is normal . No hydronephrosis. Bladder: There is a Agosto catheter within a decompressed urinary bladder. Miscellaneous: No free pelvic fluid. A left pleural effusion is noted. There is splenomegaly demon strated, measuring up to 17.3 cm. IMPRESSION: 1. No evidence of hydronephrosis. 2. Nonspecific splenomegaly. 3. Left pleural effusion. Dictated by: Jordan Baron M.D. on 03/28/2017 at 20:25 Approved by: Jordan Baron M.D. on 03/28/2017 at 20:27
[2017-03-29] VITALS (9 sets, daily range): BP systolic 100–151; BP diastolic 57–95; PULSE 85–142; RESP 20–26; O2SAT 90–100
--- NOTE | 2017-03-29 00:56 | NUR ---
BP, IVF, UOP in NOC B/p 110/60 via manual cuff. rechecked at 0030: 102/58. NS currently @ 50cc/hour, w/ standing orders to increase up to 125cc/hour for SBP <95. Tolerating PO fluids. Agosto is patent, draining dark oumou urine. @ 0100 there is approx 200cc in the bag. KUB ultrasound completed at HS. results show no hydronephrosis, slight splenomegaly, L pleural effusion. R hip dressing is CDI, assisted patient w/ turning several times thru the night, tolerating on his back and toward the window; supported w/ pillows. denies pain/discomfort. Tele Afib 86. Call light w/in reach, CTM for changes.
[2017-03-29 06:09] LABS: Mean Corpuscular Hemoglobin 26.1 pg (27.0-35.0); Mean Corpuscular Volume 88.3 fL (81-100)
[2017-03-29 06:24] LABS: INR 1.78 ratio
[2017-03-29 06:50] LABS: TROPONIN T 0.058 ug/L (0.0-0.011)
[2017-03-29] MEDS: [UNRECOGNIZED DRUG - OTHER] PO SCH (08:30)
[2017-03-29] MEDS: Polyethylene Glycol (PEG) 17 Gm Powder PO SCH ×2 (09:12→20:39)
[2017-03-29] MEDS: Diltiazem CD 180 mg ER24 Capsule PO SCH (09:12)
[2017-03-29] MEDS: Senna-Docusate 8.6-50 mg Tablet PO SCH ×2 (09:12→20:39)
--- NOTE | 2017-03-29 09:21 | PCM.PNORTH ---
Subjective Date of Service: Mar 29, 2017 Visit Information: Reason for Visit Right Hip Fracture Surgery/Surgery Date right hip IM nail 03/27/2017 Post-Op Day # 2 Date of Admission: Mar 25, 2017 at 14:09 Hospital Day # Subjective Patient was not able to get up with PT yesterday. He complains of hip pain with movement.Patient has history of chronic edema problems in the legs. Family has done lymphatic wrapping in the past. Postop General: No Shortness of Breath, No Chest Pain Pain Management: PO Objective Exam Objective Patient is seen in bed. He is alert, oriented and cooperative to exam. He is very hard of hearing. Vital Signs and I/O Vital Sign - Last Date Time Temp Pulse Resp B/P Pulse Ox O2 Delivery O2 Flow Rate FiO2 03/29/17 06:03 37.0 104 20 100/57 100 OxyMask 2.00 Intake and Output 03/28/17 03/28/17 03/29/17 Cumulative From/Thru 15:00 23:00 07:00 03/25/17 12:03 - 03/29/17 06:40 Intake Total 3500 ml 879 ml 37141 ml Output Total 100 ml 350 ml 6150 ml Balance 3400 ml 529 ml 5206 ml Intake Oral 400 ml 3340 ml IV Total 3500 ml 479 ml 7558 ml FFP 458 ml Output Urine Total 100 ml 350 ml 6050 ml Estimated Blood Loss 100 ml # Bowel Movements 0 Lab & Micro Results Laboratory Tests Test 03/28/17 16:00 03/29/17 05:25 White Blood Count 4.7th/mm3 (3.8-10.1) 5.9th/mm3 (3.8-10.1) Red Blood Count 3.14mil/mm3 (4.40-5.80) 3.41mil/mm3 (4.40-5.80) Hemoglobin 8.3g/dL (13.8-17.2) 8.9g/dL (13.8-17.2) Hematocrit 27.7% (41.0-50.0) 30.1% (41.0-50.0) Mean Corpuscular Volume 88.2fL (81-100) 88.3fL (81-100) Mean Corpuscular Hemoglobin 26.4pg (27.0-35.0) 26.1pg (27.0-35.0) Mean Corpuscular Hemoglobin Concent 30.0% (32.0-37.0) 29.6% (32.0-37.0) Red Cell Distribution Width 16.9% (12.3-15.4) 17.2% (12.3-15.4) Platelet Count 90bil/L (150-400) 108bil/L (150-400) Neutrophils (%) (Auto) 71.9% (40-74) Lymphocytes (%) (Auto) 9.7% (14-46) Monocytes (%) (Auto) 14.0% (4-12) Eosinophils (%) (Auto) 3.6% (0-5) Basophils (%) (Auto) 0.4% (0-3) D-Dimer 2.90mg/L FEU (<0.50) Sodium Level 137mEq/L (134-144) 137mEq/L (134-144) Potassium Level 3.7mEq/L (3.5-5.2) 3.9mEq/L (3.5-5.2) Chloride Level 103mEq/L (97-108) 102mEq/L (97-108) Carbon Dioxide Level 23mmol/L (18-29) 21mmol/L (18-29) Blood Urea Nitrogen 26mg/dL (8-27) 28mg/dL (8-27) Creatinine 1.74mg/dL (0.76-1.27) 1.37mg/dL (0.76-1.27) Estimat Glomerular Filtration Rate 40mL/min (>59) 52mL/min (>59) Glucose Level 123mg/dL (60-99) 126mg/dL (60-99) Lactic Acid Level 1.3mmol/L (0.4-2.0) Calcium Level 7.6mg/dL (8.5-10.1) 8.0mg/dL (8.5-10.1) Phosphorus Level 3.5mg/dL (2.5-4.9) Magnesium Level 1.7mg/dL (1.6-2.6) Total Bilirubin 0.6mg/dL (0.0-1.2) 0.7mg/dL (0.0-1.2) Aspartate Amino Transf (AST/SGOT) 21U/L (0-50) 26U/L (0-50) Alanine Aminotransferase (ALT/SGPT) 5U/L (0-44) 5U/L (0-44) Alkaline Phosphatase 52U/L (25-160) 66U/L (25-160) Troponin T 0.082ug/L (0.0-0.011) 0.058ug/L (0.0-0.011) Total Protein 4.6g/dL (6.4-8.4) 4.9g/dL (6.4-8.4) Albumin 2.5g/dL (3.4-5.0) 2.9g/dL (3.4-5.0) Procalcitonin 0.41ng/mL (0.00-0.08) 0.32ng/mL (0.00-0.08) Prothrombin Time 19.3sec (8.1-12.5) Prothromb Time International Ratio 1.78ratio Microbiology 03/28/17 Blood Culture, Received Pending Result Diagram: 03/29/1752403/29/17524 General Appearance: Alert, Oriented X3, Cooperative, No Acute Distress Extremities: Distal Pulses Palpable, No Compartment Syndrom Noted, Tenderness/ Swelling Noted (right thigh) Postop Sensory Motor: Distal Motor Intact, NVI Distally SURGICAL WOUND : Wound Location/Description Right hip: 3 wounds, serous drainage from most proximal wound, as expected. The middle and distal wounds are dry. Adam intact. No erythema present. Wounds were cleansed with hydrogen peroxide, and dressed. Proximal wound: 4x4 gauze and Island dressing, middle wound: Island dressing, distal wound 2x2 gauze and Tegaderm. Activity: Activity per PT Catheters: Urethral 2 Way Agosto Assessment & Plan Impression POD #2 right hip IM nail Problems: Plan Weight bearing as tolerated with front wheeled walker DVT prophylaxis: Lovenox to bridge until warfarin is therapeutic Dressing: dressing changed today. Serous drainage present at proxiaml wound, as expected. Change dressing as needed. Start PT for transfers, progressive ambulation, ther ex DC Agosto when kidney function is improved Add thigh high compression stockings today Discharge plan: SNF when medically stable Follow up plan: at 2 weeks post op at [facility] with Dr. Carl Pain Management: [place] VTE Prophylaxis: Sub-Q Enoxaparin, Theraputic Anticoag with Warfarin, SCDs Resuscitation Status: DNR/DNI:Do Not Resuscitate/Intubate [place] MillsMelissa Reyez PA-C Mar 29, 2017 09:21
--- NOTE | 2017-03-29 10:19 | NUR ---
HR Call recd from tele reporting a sustaining HR in 140. notified. Waiting on new orders. Pt asymptomatic. Denies pain. During that time, bandage on R hip was re-addressed, repositioned and worked with PT. Will continue to monitor.
[2017-03-29] MEDS ORDERED: MeTOProlol 1 mg/mL 5 mL Inj IVPUSH ONE (11:00)
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
--- NOTE | 2017-03-29 13:07 | NUR ---
Oxygen/Transfer [facility] rm 1015 Report called to Breana Hugo RN. A&O pt, denies pain. VSS *Pt taken off oxygen this shift, maintaining at 90-93% on RA.* Family notified of transfer. Pt denies having questions. IV Metoprolol from this AM effective, HR currently in the 80s Addendum: 03/29/17 at 1431 by BREANA ROD RN TRANSFER Pt arrived to [facility] unit, 1015, from [facility] via bed at 1320. Report received prior to pt arrival. A&Ox3, Denies Pain, Tele in place, Ice to right hip - dressing CDI, Tedhose and SCDs in place, IV SL, on P500, Personal belongings and pt chart brought down with patient - hearing aides x2/FWW/Glasses Addendum: 03/29/17 at 1432 by BREANA ROD RN Pt oriented to room and call light in reach. VSS - pt tired and wanting to sleep. CPOx in place as per RN report, pt desats with rest
--- NOTE | 2017-03-29 14:49 | NUR ---
Social Work Note: Continued Discharge Planning Data& Assessment: SW attempted to call pt fani Sparks ([phone]) regarding SNF preference and final discharge plan. SW left a voicemail with a request to call back to discuss discharge planning. SW to continue to follow. Plan: Anticipated discharge to SNF when medically ready. SW to follow up with pt and pt family regarding SNF preferences. SW to continue to follow. ELSA Tristan
[2017-03-29] MEDS ORDERED: MV,M1TAB2 PO (17:03)
[2017-03-29] MEDS: HYDROcodone-APAP 7.5-325 mg Tablet PO PRN (22:12)
[2017-03-30] VITALS (17 sets, daily range): BP systolic 116–170; BP diastolic 67–97; PULSE 75–145; RESP 16–24; O2SAT 92–98
--- NOTE | 2017-03-30 03:59 | NUR ---
activity/pain pt has been on bedrest this shift. per report pt recommended nursing staff not attempt to get pt up to [facility] because his legs were buckling when working with PT. pt used the bedpan once this shift. he has difficulty rolling due to pain and required a 2 person assist. he was however able to have a large BM once on the bedpan. he took one vicodin at bedtime. he said the pain in his hip was not horrible but enough to keep him from being able to sleep. The vicodin appeared effective as pt slept for several hours after admin. he has also complained of heal pain on his R foot. no open areas, heal red but blanchable. foot has been floated on pillows to relieve pressure on heal. pt HR was up at start of shift. it was 120s to 140s with activity. pt was given his scheduled PO metoprolol and his HR has remained in the 80s-90's since then. call light within reach, bed in low position, care continues.
[2017-03-30 04:04] LABS: Mean Corpuscular Hemoglobin 26.4 pg (27.0-35.0); Mean Corpuscular Volume 87.5 fL (81-100)
[2017-03-30 04:19] LABS: INR 1.41 ratio
[2017-03-30] MEDS: Pantoprazole 20 mg ER24 Tablet PO SCH (06:08)
[2017-03-30] MEDS ORDERED: 0.9% Sodium Chloride 250 ML IV ONE (07:50)
--- NOTE | 2017-03-30 08:21 | NUR ---
Social Work- Initial Assessment Data: See Initial Assessment. Pt is a 86 year old male admitted 03/25/17 for right hip fracture. Pt has been [place] [facility] [place] [facility]. Pt's payor is [facility]. Pt's PCP is Naveen Clay MD. SW met with pt at bedside to complete initial assessment, pt alert and oriented x3. Pt resides in [place] alone, his caregiver Andra provides transportation, meal prep, housekeeping, and medication management. Pt uses a walker at baseline and does not drive. Pt has a history of HH RN PT with [facility]. Pt has SNF history at [facility], [facility], and [facility]. Pt has no LTC or VA benefits. Pt does not use meals on wheels. PT has evaluated pt, pt has been mod/max assist STS and unable to maintain upright positioning. SW has spoke with pt regarding SNF. SNF CHOICE LIST PROVIDED. Pt chose [facility] as his only choice at this time. T/C to Julieth at [facility] regarding referral and faxed facesheet. Access provided. T/C to pt's son Bridger [phone] regarding pt's discharge plan, no answer so PHYLLIS left message requesting return call. Pt to discharge to SNF pending acceptance, SW will continue to follow. Assessment: Pt for whom SNF is medically necessary Plan: Referral made to [facility] per pt's choice. Pt to discharge to SNF pending acceptance, SW will continue to follow. ELSA Umana Addendum: 03/30/17 at 0826 by GREGORIO WHITT Amended: Links added. Addendum: 03/30/17 at 1239 by GREGORIO WHITT [facility] is able to accept pt at discharge. Masha Whitt, AUDIO TECHNICIAN
[2017-03-30] MEDS: Diltiazem CD 180 mg ER24 Capsule PO SCH (08:28)
[2017-03-30] MEDS: Senna-Docusate 8.6-50 mg Tablet PO SCH ×2 (08:28→20:30)
[2017-03-30] MEDS: Polyethylene Glycol (PEG) 17 Gm Powder PO SCH ×2 (08:28→21:09)
--- NOTE | 2017-03-30 10:43 | PCM.PNORTH ---
Subjective Date of Service: Mar 30, 2017 Visit Information: Reason for Visit Right Hip Fracture Surgery/Surgery Date right hip IM nailing 03/27/2017 Post-Op Day # 3 Date of Admission: Mar 25, 2017 at 14:09 Hospital Day # Subjective Patient reports minimal pain when laying in bed. However he has pain when he tries to move the leg. Patient is currently getting transfusion. His H&H went down to 7.2/23.9. His platelets have been low for the last couple of days however they are rebounding today and are up in the 120s. The low platelets may also explain the swelling he has been having in the right thigh. Patient was able to sit up better with physical therapy today but has not been able to stand yet. Nursing reports that dressing was changed this morning due to serous drainage at the proximal wound. Agosto was discontinued this morning. Postop General: No Shortness of Breath, No Chest Pain Pain Management: PO Objective Exam Objective Patient is seen lying in bed with transfusion underway for the first unit of blood Vital Signs and I/O Vital Sign - Last Date Time Temp Pulse Resp B/P Pulse Ox O2 Delivery O2 Flow Rate FiO2 03/30/17 09:04 119 03/30/17 08:32 36.9 16 156/78 92 Room Air 03/30/17 00:43 2.00 Intake and Output 03/29/17 03/29/17 03/30/17 Cumulative From/Thru 15:00 23:00 07:00 03/25/17 12:03 - 03/30/17 06:47 Intake Total 642 ml 300 ml 400 ml 53293 ml Output Total 350 ml 250 ml 450 ml 7200 ml Balance 292 ml 50 ml -50 ml 5498 ml Intake Oral 200 ml 300 ml 400 ml 4240 ml IV Total 442 ml 8000 ml FFP 458 ml Output Urine Total 350 ml 250 ml 450 ml 7100 ml Estimated Blood Loss 100 ml # Bowel Movements 1 1 Lab & Micro Results Laboratory Tests Test 03/30/17 03:40 White Blood Count 5.3th/mm3 (3.8-10.1) Red Blood Count 2.73mil/mm3 (4.40-5.80) Hemoglobin 7.2g/dL (13.8-17.2) Hematocrit 23.9% (41.0-50.0) Mean Corpuscular Volume 87.5fL (81-100) Mean Corpuscular Hemoglobin 26.4pg (27.0-35.0) Mean Corpuscular Hemoglobin Concent 30.1% (32.0-37.0) Red Cell Distribution Width 17.2% (12.3-15.4) Platelet Count 120bil/L (150-400) Prothrombin Time 15.2sec (8.1-12.5) Prothromb Time International Ratio 1.41ratio Sodium Level 135mEq/L (134-144) Potassium Level 3.8mEq/L (3.5-5.2) Chloride Level 103mEq/L (97-108) Carbon Dioxide Level 23mmol/L (18-29) Blood Urea Nitrogen 20mg/dL (8-27) Creatinine 0.85mg/dL (0.76-1.27) Estimat Glomerular Filtration Rate 90mL/min (>59) Glucose Level 130mg/dL (60-99) Calcium Level 8.1mg/dL (8.5-10.1) Microbiology 03/28/17 Blood Culture - Preliminary, Resulted NO GROWTH AFTER 24 HOURS Result Diagram: 03/30/17 0340 03/30/17 0340 General Appearance: Alert, Oriented X3, Cooperative, No Acute Distress Extremities: Distal Pulses Palpable, Tenderness/Swelling Noted (right thigh, as expected. The thigh is softer today than yesterday. Swelling appears decreased. Thigh high compression stockings are in place.) Postop Sensory Motor: Distal Motor Intact, NVI Distally SURGICAL WOUND : Dressing & Drainage Status: Changed (Island dressing, change this morning. Dressing is clean dry and intact) Activity: Activity per PT Catheters: None Assessment & Plan Impression POD #3 right hip IM nailing Problems: Plan Weight bearing as tolerated with front wheeled walker DVT prophylaxis: Lovenox to bridge until warfarin is therapeutic INR has gone down today to 1.4. Patient has history of PE Dressing: dressing changed by nursing this morning. Serous drainage present at proximal wound, as expected. Nursing to change dressing as needed. Continue PT for transfers, progressive ambulation, ther ex There is decreased swelling of right thigh compared to yesterday. This is not surprising since the patient is on Lovenox and warfarin. The patient's platelet level has been low the last few days but is now up in the 120s. This should help with decreasing the postoperative bleeding. Patient will be transfused 2 units of blood today due to post operative anemia H /H 7.2/23.9 Triny has been DC'd Thigh high compression stockings to help reduce swelling Discharge plan: SNF when medically stable Follow up plan: at 2 weeks post op at [facility] with Dr. Carl Pain Management: Terence VTE Prophylaxis: Sub-Q Enoxaparin, Theraputic Anticoag with Warfarin, SCDs, LISA Mauricio Resuscitation Status: DNR/DNI:Do Not Resuscitate/Intubate [place]issa Reyez PA-C Mar 30, 2017 10:43
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
--- NOTE | 2017-03-30 14:00 | NUR ---
Activity Patient was able to sit on edge of bed maintaining own trunk balance. Unable to stand with therapy. Couldn't recall pain level with activity, but states no pain while lying in bed, not moving. Agosto catheter removed today per MD's verbal order. Able to void without any difficulty.
[2017-03-30] MEDS: [UNRECOGNIZED DRUG - OTHER] PO SCH (14:36)
--- NOTE | 2017-03-30 15:21 | NUR ---
GENE signed at bedside. Masha Whitt
--- NOTE | 2017-03-30 15:57 | NUR ---
PRBC's/Drsg Change Patient signed consent for 2 units of PRBC's. 1st unit infused without any complications, patient tolerated well. 2nd unit is running right now. Proximal and medial island dressings were changed. Proximal dressing had moderate amount of serous-sanguineous drainage. Incisions were well approximated with armando in place.
[2017-03-30] MEDS ORDERED: MeTOProlol 1 mg/mL 5 mL Inj IVPUSH ONE (20:55)
[2017-03-31 00:45] VITALS: BP 151/82; PULSE 90; RESP 20; O2SAT 92
--- NOTE | 2017-03-31 03:20 | NUR ---
HR Assumed patient care at approx 1999 due to staffing changes. After assuming care tele monitor reports that patients has Afib and his HR has steadily increased into the 150's, but does not sustain. At 2049 BP 159/97 and HR per tele report is 142. Night hospitalist notified and an order for 5mg IV metoprolol IVP has been ordered. Upon reassessment at 2151 BP 138/80 and HR 92. Night hospitalist paged. Hospitalist has stated that if HR sustains > 110 then to notify for further orders. Will continue to monitor, and continue Q1 hour checks.
[2017-03-31 04:45] VITALS: BP 158/78; PULSE 93; RESP 22; O2SAT 95
[2017-03-31 04:50] VITALS: PULSE 98
[2017-03-31 05:50] LABS: Mean Corpuscular Hemoglobin 26.9 pg (27.0-35.0); Mean Corpuscular Volume 86.9 fL (81-100)
[2017-03-31 06:25] LABS: INR 1.4 ratio
[2017-03-31] MEDS ORDERED: LOV80 SUBQ (10:01)
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
[2017-03-31 10:13] VITALS: BP 122/72; PULSE 124; RESP 17; O2SAT 92
[2017-03-31] MEDS ORDERED: DEXT1DRO8 BOTH_EYES (10:16)
[2017-03-31] MEDS: Polyethylene Glycol (PEG) 17 Gm Powder PO SCH (10:23)
[2017-03-31] MEDS: Diltiazem CD 180 mg ER24 Capsule PO SCH (10:24)
[2017-03-31] MEDS: Senna-Docusate 8.6-50 mg Tablet PO SCH (10:25)
[2017-03-31] MEDS: [UNRECOGNIZED DRUG - OTHER] PO SCH (10:25)
[2017-03-31] MEDS: Pantoprazole 20 mg ER24 Tablet PO SCH (10:25)
--- NOTE | 2017-03-31 10:30 | NUR ---
Called and spoke with Yani Aranda and let her know patient is ready for discharge today and we would like to send patient to [facility]. She will review and give us approval or denial for transfer to [facility]. Updated MUSIC DIRECTOR Addendum: 03/31/17 at 1041 by LOVE ARTIS CM Called and arranged S transport for 1300 via [facility], MD order written for this. PCS form completed and copy placed in chart. Updated MUSIC DIRECTOR Addendum: 03/31/17 at 1201 by LOVE ARTIS CM Faxed order to [facility] and place copy in the chart. Yani Aranda CM from [facility] had approved patient for transfer to [facility] today. Also spoke with Shani Schaefer digital asset coordinator and she is aware of transport, she is needing hard script for continued narcotic listed in medication list. ELSA is following up with MD to acquire these. Updated MUSIC DIRECTOR
--- NOTE | 2017-03-31 10:39 | PCM.PHAPRO ---
Progress Ground-level fall/1 hr Right hip pain/1hr WARFARIN DOSING PER PHARMACY [facility] [place] DFF DFF DFF Date Mar 29Mar 30Mar 31 INR 1.26 1.73 1.41 1.40 INR change 0.47 -0.32 -0.01 Warf Dose 6 4 6 6 A/P -Subtherapeutic INR. Variable levels due to vitamin k that was given on 03/25 which can linger in the body for up to a week. -Will continue with warfarin 6mg tonight if pt is not discharged to LTCF Salomon Eller, PharmD Salomon Eller Mar 31, 2017 10:39
[2017-03-31 11:37] VITALS: PULSE 101
[2017-03-31] MEDS ORDERED: OXYC1TAB24 PO (12:18)
--- NOTE | 2017-03-31 12:30 | PCM.PNORTH ---
Subjective Date of Service: Mar 31, 2017 Visit Information: Reason for Visit Right Hip Fracture Surgery/Surgery Date Post-Op Day # Date of Admission: Mar 25, 2017 at 14:09 Hospital Day # Subjective s/p 4 days R hip IM nail. Pt states his hip is doing better. Not in pain today. Postop General: No Shortness of Breath, No Chest Pain Pain Management: PO Objective Exam Objective Pt is not alert and oriented x 3 but answering questions appropriately. Dressing is clean, dry, and intact. Right calf is soft and non-tender. Sensation and pulses intact. Hemoglobin 8.6, Hct: 27.8. INR: 1.4 Vital Signs and I/O Vital Sign - Last Date Time Temp Pulse Resp B/P Pulse Ox O2 Delivery O2 Flow Rate FiO2 03/31/17 11:37 101 03/31/17 10:13 Supplement Oxygen 03/31/17 10:13 36.6 17 122/72 92 03/31/17 04:45 2.00 Intake and Output 03/30/17 03/30/17 03/31/17 Cumulative From/Thru 15:00 23:00 07:00 03/25/17 12:03 - 03/31/17 06:30 Intake Total 380 ml 844 ml 640 ml 45136 ml Output Total 300 ml 585 ml 8085 ml Balance 380 ml 544 ml 55 ml 6477 ml Intake Oral 400 ml 640 ml 5280 ml IV Total 40 ml 60 ml 8100 ml Packed Cells 340 ml 384 ml 724 ml FFP 458 ml Output Urine Total 300 ml 585 ml 7985 ml Estimated Blood Loss 100 ml # Voids 5 5 # Bowel Movements 1 1 3 Lab & Micro Results Laboratory Tests Test 03/31/17 04:50 White Blood Count 6.2th/mm3 (3.8-10.1) Red Blood Count 3.20mil/mm3 (4.40-5.80) Hemoglobin 8.6g/dL (13.8-17.2) Hematocrit 27.8% (41.0-50.0) Mean Corpuscular Volume 86.9fL (81-100) Mean Corpuscular Hemoglobin 26.9pg (27.0-35.0) Mean Corpuscular Hemoglobin Concent 30.9% (32.0-37.0) Red Cell Distribution Width 16.6% (12.3-15.4) Platelet Count 135bil/L (150-400) Prothrombin Time 15.1sec (8.1-12.5) Prothromb Time International Ratio 1.40ratio Creatinine 0.81mg/dL (0.76-1.27) Microbiology 03/28/17 Blood Culture - Preliminary, Resulted No growth at 2 days; culture examined... Result Diagram: 03/31/1744903/31/17449 SURGICAL WOUND : Dressing & Drainage Status: Changed (Island dressing, change this morning. Dressing is clean dry and intact) Activity: Activity per PT Catheters: None Assessment & Plan Impression s/p day 4 R hip IM nail. Pt doing well, improved Hgb after 2 units of blood. Ready for D/C to SNF from orthopedic standpoint. Problems: Plan Weight bearing as tolerated with front wheeled walker DVT prophylaxis: Lovenox to bridge until warfarin is therapeutic INR is 1.4. Patient has history of PE Dressing: Nursing to change dressing as needed. Continue PT for transfers, progressive ambulation, ther ex Thigh high compression stockings to help reduce swelling Discharge plan: SNF when medically stable Follow up plan: at 2 weeks post op at [facility] with Dr. Carl VTE Prophylaxis: Sub-Q Enoxaparin, Theraputic Anticoag with Warfarin, SCDs, LISA Martínez Resuscitation Status: DNR/DNI:Do Not Resuscitate/Intubate Kushal Sharma PA-C Mar 31, 2017 12:30
--- NOTE | 2017-03-31 14:17 | NUR ---
Social Work: Discharge D: EMR reviewed. Pt is on day 6 of hospitalization. PHYLLIS confirmed pt is ready to discharge per MD in AM multi-disciplinary rounds. SW confirmed pt will transport via BLS to [facility] with Dr. Reynoso to follow. [facility] confirmed they will transport pt at 1300 today. SW will continue to follow. A: Pt for whom a SNF has been deemed medically necessary. P: Pt to transport via BLS to [facility] today at 1300. Transport packet and hard rx prepared at left at nurses station for pick-up. SW placed T/C and left voicemail for pt's son Bridger regarding pt's transport. ELSA Garg
--- NOTE | 2017-03-31 14:43 | NUR ---
Heart Rate, Discharge 0855 - The General I Farmworker called to say his A-fib heart rate was increasing into the 120s/130s. He was given his AM cardiac medications. The General I Farmworker called back about 1110 and said that his heart rate had decreased back to below 100. 1201 - Social work called via [employer] and left a message about his transportation to [facility]. The pt had been worried about having to pay for it and wanted to take the bus instead even though that would have been physically impossible. SW said he would be given a BLS transport at 1300 and that insurance would cover the costs. 1307 - He discharged at this time and was transported by [facility]. They took his discharge paperwork and his two home medication bottles. Gave a quick report to the wetland scientist. Called the nurse Martha from [facility] to give her a report. Answered her questions. IV and telemetry discontinued intact prior to discharge.
--- NOTE | 2017-03-31 14:53 | DRSVH ---
[facility] [address] [place] [address] Echocardiogram Report Name: FAWN ZAPATA CStudy Date: 03/28/2017 Height: 70 in Hospital Exam Location: [facility] Weight: 174 lb Gender: Male BSA: 2.0 m2 : 1930 Age: 86 yrs BP: 89/50 mmHg Reason For Study: HYPOTENSION Ordering Physician: CHAMP TEAM Performed By: Ciro Serrano Referring Physician: Naveen Clay Interpretation Summary The left ventricle is normal in size. The ejection fraction is estimated to be 60-65%. There are no obvious focal wall motion abnormalities noted but poor endocardial definition reduces the sensitivity for the detection of such. The aortic valve is moderately calcified. There is no hemodynamically significant valvular aortic stenosis. There is mild aortic regurgitation. The right ventricle is moderately dilated. Right ventricular systolic function is moderately reduced. The right ventricular systolic pressure is estimated at 53 mmHg assuming a right atrial pressure of 15 mm Hg. There is severe tricuspid regurgitation. There is moderate pulmonic regurgitation. The ascending aorta is mildly enlarged. Results were discussed with Dr. Harding on 03/28/2017 at 1805 hrs. Findnigs are suspicious for pulmonary embolism. Procedure: A two-dimensional transthoracic echocardiogram with color flow and Doppler was performed. The study quality was technically difficult. Comparison is made with the echocardiogram of 11/28/15. The patient was in atrial fibrillation with controlled ventricular rate during the exam. The patient had a heart rate of 68-86 beats per minute. Left Ventricle: The left ventricle is normal in size. There is normal left ventricular wall thickness. The ejection fraction is estimated to be 60-65%. There are no obvious focal wall motion abnormalities noted but poor endocardial definition reduces the sensitivity for the detection of such. Right Ventricle: The right ventricle is moderately dilated. Right ventricular systolic function is moderately reduced. Atria: The left atrium is not well visualized. Right atrium not well visualized. The interatrial septum is intact with no evidence for an atrial septal defect. Mitral Valve: There is mild mitral annular calcification. There is trace mitral regurgitation. Aortic Valve: The aortic valve is trileaflet. The aortic valve is moderately calcified. There is no hemodynamically significant valvular aortic stenosis. There is mild aortic regurgitation. Tricuspid Valve: The tricuspid valve leaflets are thin and pliable. There is severe tricuspid regurgitation. The right ventricular systolic pressure is estimated at 53 mmHg assuming a right atrial pressure of 15 mm Hg. Pulmonic Valve: The pulmonic valve is not well visualized. There is moderate pulmonic regurgitation. Great Vessels: The aortic root is normal size. The ascending aorta is mildly enlarged. The pulmonary artery is normal size. The IVC is dilated (diameter is greater than 2.1 cm) and it collapses less than 50% with a sniff. This suggests a high right atrial pressure of 15 mm Hg. Pericardium/ Pleura There is no pericardial effusion. There is no pleural effusion. MMode/2D Measurements & Calculations LVIDd: 4.4 cm LA dimension LVOT diam LV españa. diameter/BSA LVIDs: 3.2 cm (cm/m^2): 2.2 FS: 27.9 % IVC diam Ao root diam EPSS: 0.85 cm : 3.3 cm IVSd: 1.1 cm Aortic Jxn LVPWd: 1.3 cm asc Aorta Diam: 3.7 cm LV sys. diameter/BSA RVD1 (basal) RVD2 (mid) (cm/m^2): 1.6 : 5.0 cm Doppler Measurements & Calculations Ao V2 max: 171.2 cm/secMV E max don MV E/A: 110.6 TR max don Ao max P.7 mmHg : 92.8 cm/sec Med Peak E' Don : 308.4 cm/sec Ao mean P.9 mmHg MV A max don TR max PG LVOT Max Don : 0.84 cm/sec E/E' med: 14.7 : 38.1 mmHg : 65.6 cm/sec PA V2 max : 69.5 cm/sec BEATRIZ(I,D): 1.4 cm PA mean PG sev ratio: 0.37 PA Accel Time : 0.09 sec MV dec time: 0.17 sec Ao V2 mean LV V1 max PG PA V2 mean : 126.2 cm/sec : 48.6 cm/sec Ao V2 VTI: 33.9 cmLV V1 VTI PA pr(Accel) : 12.6 cm : 34.5 mmHg BEATRIZ(V,D): 1.5 cm2 BEATRIZ indexed to BSA (cm^2/m^2): 0.73 Reading Physician:PM
--- NOTE | 2017-03-31 14:56 | NUR ---
spiritual care: follow up brief visit as pt discharged to [facility]. Pt agreeable for contact with his caregiver and processor helper, participating in his discharge details.
[2017-03-31] MEDS ORDERED: Warfarin 5 MG, Warfarin 2.5 MG PO ONE ×2 (17:00)
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
== END 2017-03-31 13:10 | DRG 481 ==
LOC: SED 11:58 → OSC 14:09 → MPC 03-28 18:16 → OSC 03-29 13:27
PROVIDERS: ADMIT Internal Medicine; ATTEND Internal Medicine
PROC: 30233P1 Transfusion of Nonautologous Frozen Red Cells into Peripheral Vein, Percutaneous Approach (ICD-10-PCS; 2017-03-25)
PROC: 0QS636Z Reposition Right Upper Femur with Intramedullary Internal Fixation Device, Percutaneous Approach (ICD-10-PCS; principal; 2017-03-27 12:15)
PROC: 4A033R1 Measurement of Arterial Saturation, Peripheral, Percutaneous Approach (ICD-10-PCS; 2017-03-28)
PROC: 30233N1 Transfusion of Nonautologous Red Blood Cells into Peripheral Vein, Percutaneous Approach (ICD-10-PCS; 2017-03-30)
DX: S72.141A Displaced intertrochanteric fracture of right femur, initial encounter for closed fracture (principal); N17.9 Acute kidney failure, unspecified; D62 Acute posthemorrhagic anemia; L97.829 Non-pressure chronic ulcer of other part of left lower leg with unspecified severity; L97.819 Non-pressure chronic ulcer of other part of right lower leg with unspecified severity; I48.2 Chronic atrial fibrillation; K21.9 Gastro-esophageal reflux disease without esophagitis; I10 Essential (primary) hypertension; G47.33 Obstructive sleep apnea (adult) (pediatric); Z66 Do not resuscitate; Z96.643 Presence of artificial hip joint, bilateral; I45.10 Unspecified right bundle-branch block; Z79.01 Long term (current) use of anticoagulants; Z87.440 Personal history of urinary (tract) infections; Y92.9 Unspecified place or not applicable; V48.4XXA Person boarding or alighting a car injured in noncollision transport accident, initial encounter; Z88.0 Allergy status to penicillin; Z86.711 Personal history of pulmonary embolism; Z87.891 Personal history of nicotine dependence; Z85.46 Personal history of malignant neoplasm of prostate; Z86.73 Personal history of transient ischemic attack (TIA), and cerebral infarction without residual deficits

== ENCOUNTER 2017-04-04 11:58 | Inpatient (IN) | payer MEDICARE ==
[~2017-04-04] VITALS: Ht 154.9 cm; Wt 84.0 kg
[~2017-04-04 11:58] MED LIST changes: +DEXT1DRO8 BOTH_EYES; +LOV80 SUBQ; +MV,M1TAB2 PO; +SENN-133 PO; -SENN8.6C6 PO; +WARF4TAB6 PO; -WARF5TAB7 PO
[2017-04-04 12:00] VITALS: PULSE 84; RESP 21; O2SAT 99
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
[2017-04-04 13:07] LABS: BASOPHILS % (AUTO) 0.3 % (0-3); EOSINOPHILS % (AUTO) 1.7 % (0-5); MONOCYTES % (AUTO) 9.6 % (4-12); Mean Corpuscular Hemoglobin 26.9 pg (27.0-35.0); Mean Corpuscular Volume 91.2 fL (81-100); NEUTROPHILS % (AUTO) 80.7 % (40-74); Platelet Count 279 bil/L (150-400)
[2017-04-04] MEDS ORDERED: FERR-83 PO (13:38)
[2017-04-04] MEDS ORDERED: WARF5TAB7 PO (13:42)
[2017-04-04] MEDS ORDERED: ACET325C PO (13:45)
[2017-04-04] MEDS ORDERED: OXYC5TAB72 PO (13:45)
[2017-04-04] MEDS ORDERED: MAGN400O4 PO (13:47)
[2017-04-04] MEDS ORDERED: NA P133E23 RC (13:47)
[2017-04-04] MEDS ORDERED: BISA10SU61 RC (13:47)
[2017-04-04] MEDS ORDERED: Ondansetron 2 mg/mL 2 mL Inj IVPUSH PRN (13:50)
[2017-04-04] MEDS ORDERED: Alum-Mag Hydrox-Simeth 30 mL Suspension PO PRN (13:50)
[2017-04-04 15:59] VITALS: BP 118/36; PULSE 84; RESP 26; O2SAT 95
[2017-04-04 16:01] VITALS: BP 124/47; PULSE 91; RESP 23; O2SAT 94
[2017-04-04 16:19] LABS: APPEARANCE,URINE CLEAR (CLEAR,HAZY); COLOR,URINE ORANGE (YELLOW); PH,URINE 5.5 (5.0-8.0)
[2017-04-04 16:20] LABS: OCCULT BLOOD,URINE NEGATIVE (NEGATIVE); UROBILINOGEN,URINE NORMAL (NORMAL)
--- NOTE | 2017-04-04 16:21 | NUR ---
admit pt is brought up from ED on hospital [facility], pt needed significant help getting from [facility] to bed. pt has blood running. pt has had a recent right hip replacement with dressing C/D/I. pt denies pain/chest pain/nausea and vomiting. pt states that he doesn't recall when he had a BM, thinks that he had on yesterday or the day before, pt is voiding normal. Waiting on orders
--- NOTE | 2017-04-04 16:38 | DRSVH ---
PROCEDURE: CT ABDOMEN AND PELVIS WITH CONTRAST (PNL-7102) INDICATIONS: tender LLQ mass TECHNIQUE: After the administration of intravenous contrast, 5 mm thick sections acquired from the diaphragm to the symphysis. 5 mm coronal and sagittal reformats were acquired. For radiation dose reduction, the following was used: automated exposure control, adjustment of mA and/or kV according to patient siz e. COMPARISON: [facility], CR, XR CHEST 2VW, 11/11/2016, 9:48. [facility], CR, XR CHEST 1VW (PORTABLE), 07/13/2015, 6:10. [facility], CT, CT ANGIO CHEST PE, 03/28/2017, 17:50. FINDINGS: Image quality: Excellent. ABDOMEN: Lung bases: There is a small low-density left pleural effusion slightly decreased in size when tarsha red to study dated 03/28/17. The heart is enlarged. No pericardial effusion. Solid organs: Liver and spleen are normal in size and enhancement. Gallbladder is unremarkable. Bi liary system is non dilated. Pancreas enhances normally. No adrenal nodules. Kidneys demonstrate n ormal size and enhancement, without hydronephrosis. A nonobstructing 6 mm diameter calculus is presen t within the lower pole left kidney. Peritoneum and bowel: Bowel loops demonstrate normal wall thickness and caliber. No free fluid or a ir. Nodes and vessels: No retroperitoneal or mesenteric adenopathy by size criteria. Aorta and inferior vena cava are normal in size. There are scattered atheromatous calcifications throughout the aorta and iliac arteries bilaterally. Miscellaneous: There is a large, complex appearing left rectus sheath hematoma which measures 5.6 x 8 .0 x 11.7 cm. A fluid/fluid level is present within. No ventral hernia. Scattered foci of subcutaneou s emphysema overlies the left lower quadrant. There is mild fat stranding in the subcutaneous tissue suggesting subcutaneous hematoma. PELVIS: Genitourinary: Bladder wall thickness is normal. A small amount of gas is present within the bladder suggesting prior catheterization. Miscellaneous: No inguinal hernias or adenopathy. There is generalized anasarca. Bones: Bones are diffusely osteopenic. There is a right dynamic hip screw which is grossly intact, an acetabular screw on the right, a bilateral sacroiliac joint screw, and a left hip arthroplasty. Jacqueline re degenerative changes are present throughout the hip joints, sacroiliac joints, and lumbar spine. A severe wedge compression deformity is present at L2 this is stable when compared with the plain film dated 11/11/16. IMPRESSION: 1. Large left rectus sheath hematoma with a complex appearance and fluid/fluid level within. These fi ndings suggest subacute, evolving hematoma. No definite active extravasation; however no arterial pha se study was obtained. This finding was discussed with Dr. Mead at 4:31 PM on 04/04/17. 2. Small low-density left pleural effusion slightly decreased when compared with the study dated 03/28. 3. Nonobstructing left nephrolithiasis. 4. Punctate focus of gas in the bladder suggesting prior catheterization. If there is no history of r ecent catheterization, gas-forming cystitis could be included in the differential. 5. Extensive pelvic fixation and degenerative change. Dictated by: Jazmín Campo M.D. on 04/04/2017 at 16:21 Approved by: Jazmín Campo M.D. on 04/04/2017 at 16:36
[2017-04-04] MEDS: 0.9% Sodium Chloride 1,000 ML IV SCH (16:44)
[2017-04-04 16:45] LABS: INR 1.35 ratio
[2017-04-04] MEDS ORDERED: Polyethylene Glycol (PEG) 17 Gm Powder PO PRN (16:45)
[2017-04-04] MEDS ORDERED: Phytonadione (Adult) 10 MG in Dextrose 5%-Pha MIX 50 ML IV ONE (16:45)
[2017-04-04] MEDS ORDERED: Sodium Biphos-Phos 133 mL Enema RECTAL PRN (16:55)
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
[2017-04-04] MEDS ORDERED: Magnesium Hydroxide 10 mL Oral Concentration PO PRN (17:20)
[2017-04-04] MEDS ORDERED: Phytonadione (Adult) 10 mg/1 mL Inj PO ONE (17:25)
[2017-04-04 17:29] VITALS: BP 132/79; PULSE 112; RESP 22; O2SAT 98
[2017-04-04 18:23] VITALS: BP 132/79; PULSE 112; RESP 22
--- NOTE | 2017-04-04 20:14 | NUR ---
[facility] signed
[2017-04-04 20:37] VITALS: BP 112/82; PULSE 124; RESP 20; O2SAT 94
[2017-04-04] MEDS: Polyethylene Glycol (PEG) 17 Gm Powder PO SCH (21:08)
[2017-04-05 04:08] LABS: Mean Corpuscular Hemoglobin 27.9 pg (27.0-35.0); Mean Corpuscular Volume 89.8 fL (81-100)
[2017-04-05 04:25] LABS: INR 1.23 ratio
[2017-04-05] MEDS: Artificial Tears 15 mL Ophthalmic Solution BOTH_EYES PRN ×2 (05:06→23:00)
[2017-04-05] MEDS: 0.9% Sodium Chloride 1,000 ML IV SCH ×2 (05:06→15:33)
[2017-04-05 05:33] VITALS: BP 121/60; PULSE 102; RESP 18; O2SAT 95
--- NOTE | 2017-04-05 06:34 | NUR ---
Activity Pt using bedpan and urinal this shift. Pt able to assist with turning to affected side for bedpan use. Dressing are clean, dry and intact. No reports of pain. Call light within reach, frequent rounding.
[2017-04-05] MEDS ORDERED: LYCOPENE PO SCH (08:30)
[2017-04-05] MEDS ORDERED: GINKGO PO SCH (08:30)
[2017-04-05] MEDS ORDERED: [UNRECOGNIZED DRUG - OTHER] PO SCH (08:30)
[2017-04-05] MEDS ORDERED: MV MINERALS PO SCH (08:30)
[2017-04-05] MEDS: Diltiazem CD 180 mg ER24 Capsule PO SCH (08:42)
[2017-04-05] MEDS: Pantoprazole 40 mg ER24 Tablet PO SCH (08:44)
[2017-04-05 10:45] LABS: Mean Corpuscular Hemoglobin 27.7 pg (27.0-35.0); Mean Corpuscular Volume 89.9 fL (81-100)
--- NOTE | 2017-04-05 10:54 | PCM.PNMED ---
Subjective Date of Service Apr 05, 2017 Subjective He is seen today in his room to follow-up the anemia, blood transfusions, large rectus sheath hematoma. His hemoglobin this morning is 8.2 with an INR of 1.23. He has no abdominal pain and there are no signs of ongoing oozing/bleeding into the hematoma. The right upper leg wound also appears to be without any bruising or bleeding. He has severe hearing loss so most of the discussion is with his software analyst who will remind him of the facts discussed today. Exam Vital Signs Vital Sign - Last Date Time Temp Pulse Resp B/P Pulse Ox O2 Delivery O2 Flow Rate FiO2 04/05/17 05:33 36.7 102 18 121/60 95 Room Air 04/04/17 17:29 1.50 Intake and Output 04/04/17 04/04/17 04/05/17 Cumulative From/Thru 15:00 23:00 07:00 04/04/17 12:00 - 04/05/17 06:54 Intake Total 1257 ml 1083 ml 2340 ml Output Total 325 ml 775 ml 1100 ml Balance 932 ml 308 ml 1240 ml Intake Oral 175 ml 100 ml 275 ml IV Total 1082 ml 983 ml 2065 ml Output Urine Total 325 ml 775 ml 1100 ml # Voids 1 1 # Bowel Movements 0 2 2 Exam He says he feels much better today with increased energy. Heart is irregularly tachycardic. Lungs are clear to auscultation bilaterally Abdomen is soft, bowel sounds are active, there is a tender lump on the left lower quadrant. Extremities have no ankle edema. IVs and Medications Medications Reviewed: Medications were reviewed in detail Lab and Diagnostics Result Diagram: 04/05/17 0315 X-Rays, CTs and MRIs [facility] Diagnostic [place] [address] Patient Name: FAWN ZAPATA MR#: [id number] Location: [facility] – [place] Ordering Phys: Serafin Mead MD Date of Service: 04/04/17 1418 PROCEDURE: CT ABDOMEN AND PELVIS WITH CONTRAST (PNL-7102) INDICATIONS: tender LLQ mass TECHNIQUE: After the administration of intravenous contrast, 5 mm thick sections acquired from the diaphragm to the symphysis. 5 mm coronal and sagittal reformats were acquired. For radiation dose reduction, the following was used: automated exposure control, adjustment of mA and/or kV according to patient size. COMPARISON: [facility], CR, XR CHEST 2VW, 11/11/2016, 9:48. [facility], CR, XR CHEST 1VW (PORTABLE), 07/13/2015, 6:10. [facility], CT, CT ANGIO CHEST PE, 03/28/2017, 17:50. FINDINGS: Image quality: Excellent. ABDOMEN: Lung bases: There is a small low-density left pleural effusion slightly decreased in size when compared to study dated 03/28/17. The heart is enlarged. No pericardial effusion. Solid organs: Liver and spleen are normal in size and enhancement. Gallbladder is unremarkable. Biliary system is non dilated. Pancreas enhances normally. No adrenal nodules. Kidneys demonstrate normal size and enhancement , without hydronephrosis. A nonobstructing 6 mm diameter calculus is present within the lower pole left kidney. Peritoneum and bowel: Bowel loops demonstrate normal wall thickness and caliber. No free fluid or air. Nodes and vessels: No retroperitoneal or mesenteric adenopathy by size criteria. Aorta and inferior vena cava are normal in size. There are scattered atheromatous calcifications throughout the aorta and iliac arteries bilaterally. Miscellaneous: There is a large, complex appearing left rectus sheath hematoma which measures 5.6 x 8.0 x 11.7 cm. A fluid/fluid level is present within. No ventral hernia. Scattered foci of subcutaneous emphysema overlies the left lower quadrant. There is mild fat stranding in the subcutaneous tissue suggesting subcutaneous hematoma. PELVIS: Genitourinary: Bladder wall thickness is normal. A small amount of gas is present within the bladder suggesting prior catheterization. Miscellaneous: No inguinal hernias or adenopathy. There is generalized anasarca. Bones: Bones are diffusely osteopenic. There is a right dynamic hip screw which is grossly intact, an acetabular screw on the right, a bilateral sacroiliac joint screw, and a left hip arthroplasty. Severe degenerative changes are present throughout the hip joints, sacroiliac joints, and lumbar spine. A severe wedge compression deformity is present at L2 this is stable when compared with the plain film dated 11/11/16. IMPRESSION: 1. Large left rectus sheath hematoma with a complex appearance and fluid/fluid level within. These findings suggest subacute, evolving hematoma. No definite active extravasation; however no arterial phase study was obtained. This finding was discussed with Dr. Mead at 4:31 PM on 04/04/17. 2. Small low-density left pleural effusion slightly decreased when compared with the study dated 03/28/17. 3. Nonobstructing left nephrolithiasis. 4. Punctate focus of gas in the bladder suggesting prior catheterization. If there is no history of recent catheterization, gas-forming cystitis could be included in the differential. 5. Extensive pelvic fixation and degenerative change. Dictated by: Jazmín Campo M.D. on 04/04/2017 at 16:21 Approved by: Jazmín Campo M.D. on 04/04/2017 at 16:36 Assessment & Plan 1 - Blood Loss Anemia Transfused 2 units packed red blood cells yesterday. Repeat CBC in the morning to ensure no further rectus sheath hematoma bleeding.. Give vitamin K per surgical recommendations. Dosing discussed with pharmacy. Although the INR did not reach 1.0 as hoped it is likely low enough to no longer be contributing to any bleeding into the rectus sheath. Anticip[facility] tomorrow if hemoglobin remains stable/rises. 2 - Rectus Sheath Hematoma/Anticoagulated with Coumadin. -Discussed with Dr. Grey and vitamin K was given yesterday. -The INR should be down to 1.0 for the near future at least -It would be very unlikely that he would resume the Coumadin in the future. I have asked him to discuss that further with his primary care, Dr. Clay. -Observe and intervene only if worsens or becomes symptomatic in some other way. -This undoubtedly contributed to it to this post recovery anemia. 3 - Atrial Fibrillation -Holding Coumadin and anticoagulation for now. His software analyst will discuss with the patient and his family, and in the future with his primary care doctor, the issue of balancing the risk of stroke and DVT against the risk of similar bleeding complications as he has experienced. At this time he clearly needs to be off the Coumadin as bleeding is the more pressing risk. -Continue rate control with diltiazem and metoprolol. 4 - Recent left femur Fracture/ORIF - rodding -This appears to be healing well. Continue PT/OT here and back at the SNF soon. -Continue as needed oxycodone. -Remove armando once confirmed that it has been 10 days since his surgery. 5 - Severe Hearing Loss -This is long-standing. He is wearing his hearing aids. 6 - Hypertension Continue diltiazem and metoprolol. 7 - Osteoarthritis/Gout -Continue allopurinol and oxycodone. 8 - History of Endocarditis -No signs of recurrence 9 - History of Prostate Cancer No signs of recurrence Shan Cortez M.D. VTE Mechanical Devices: Venous Foot Pump Resuscitation Status: DNR/DNI:Do Not Resuscitate/Intubate Laurent Cortez MD Apr 05, 2017 10:07
[2017-04-05 13:00] VITALS: BP 108/65; PULSE 81; RESP 24; O2SAT 93
--- NOTE | 2017-04-05 13:55 | NUR ---
Evaluation completed. Please go to "Notes" then click on "Assessments and Notes" (bottom left corner of screen). Then select appropriate discipline tab on top of screen.
--- NOTE | 2017-04-05 14:07 | NUR ---
Evaluation completed. Please go to "Notes" then click on "Assessments and Notes" (bottom left corner of screen). Then select appropriate discipline tab on top of screen.
[2017-04-05] MEDS: Polyethylene Glycol (PEG) 17 Gm Powder PO SCH ×2 (14:17→20:30)
--- NOTE | 2017-04-05 14:34 | NUR ---
Social Work- initial assessment: Data:See initial assessment. Pt is a 86 y/o male who was admitted on 04/04/17 for sever anemia per H&P. Pt's insurance is [employer] and PCP is Naveen Clay MD. EMR Reviewed. Pt's readmission score is 3-high risk. SW met with pt at bedside, SW role explained. Pt confirms he has been at [facility] for rehab and is agreeable to returning there at discharge. Pt has been using a fww. Pt has no HH history and does not drive. SW discussed DPOA/ advanced directive, this has been completed, SW encouraged a copy to be brought in. SW placed a call to Jozef Sparks [phone] and left message to discuss discharge planning. SW to await MD order for return to SNF. Phone number placed on the board. SW will continue to follow. Assessment:Pt who has been at [facility]. Plan:Anticipate pt to discharge back to [facility]. SW to await MD orders for SNF. SW will continue to follow. ELSA Jennings Addendum: 04/05/17 at 1437 by VARINDER HUTTON Amended: Links added.
--- NOTE | 2017-04-05 17:50 | NUR ---
Incision/Mobility Incision to R hip well approximated with both armando and steri strips placed. No drainage. No s/s of infection. Pitting edema in R hip that extends from R flank area to R lower thigh. Patient denies pain. Received verbal order to remove staple tomorrow. Continues to be bedrest with turning Q 2.
[2017-04-05 21:30] VITALS: BP 136/67; PULSE 99; RESP 20; O2SAT 99
[2017-04-06] MEDS: 0.9% Sodium Chloride 1,000 ML IV SCH ×3 (01:30→18:35)
[2017-04-06 05:23] VITALS: BP 134/63; PULSE 92; RESP 18; O2SAT 95
--- NOTE | 2017-04-06 06:36 | NUR ---
Uneventful shift Pt using bedpan for liquid BM's this shift. Denies pain. Turn Q2 hours. Dressings to hip and thigh are clean, dry and intact. Call light within reach, frequent rounding.
[2017-04-06] MEDS: Polyethylene Glycol (PEG) 17 Gm Powder PO SCH ×2 (08:30→20:15)
--- NOTE | 2017-04-06 08:30 | NUR ---
GENE signed. ELSA Jennings
[2017-04-06 08:40] LABS: BASOPHILS % (AUTO) 0.3 % (0-3); EOSINOPHILS % (AUTO) 4.4 % (0-5); MONOCYTES % (AUTO) 8.1 % (4-12); Mean Corpuscular Hemoglobin 28.4 pg (27.0-35.0); Mean Corpuscular Volume 91.4 fL (81-100); NEUTROPHILS % (AUTO) 80.3 % (40-74); Platelet Count 266 bil/L (150-400)
[2017-04-06] MEDS: Diltiazem CD 180 mg ER24 Capsule PO SCH (08:46)
[2017-04-06] MEDS: Pantoprazole 40 mg ER24 Tablet PO SCH (08:47)
--- NOTE | 2017-04-06 09:03 | NUR ---
Social Work-readiness for discharge: Data:EMR Reviewed. Pt is on day 2 of hospitalization for sever anemia per H&P. Pt is not medically stable anticipate 1-2 more days. PT continues to work with pt and recommend SNF placement. SW received a call from daughter in law Jasmyn [phone]. Jasmyn states her Bridger works alot and she is a better contact. Jasmyn confirms the plan would be for pt to return to [facility] at discharge. SW awaiting MD order for return to SNF to contact [facility]. Insurance authorization will also need to be obtained prior to return. Paperwork has been placed in the chart. SW will continue to follow. Assessment:Pt who would benefit from SNF. Plan:Pt to likely discharge back to [facility] when medically stable. Pt will need insurance authorization prior to return. SW awaiting MD order for return to SNF to contact [facility].Paperwork has been placed in the chart. SW will continue to follow. ELSA Jennings
--- NOTE | 2017-04-06 10:22 | NUR ---
Case Management D: Clinicals faxed to [facility] for authorization of return to [facility] for rehab. Addendum: 04/06/17 at 1155 by CLARENCE VELASQUEZ SS DC to [facility] authorized by Radha with [employer] Addendum: 04/06/17 at 1410 by CLARENCE VELASQUEZ SS Notified by Ligia HUNTER that pt is now not discharging. I spoke with Eliz at [facility] to up date her on change of plans.
--- NOTE | 2017-04-06 11:22 | NUR ---
R hip incision Pt has three incisions to R hip. A small incision distally, near R knee then 2 additional incisions. 3 armando removed from distal incision and steri strips applied and covered with a dry Telfa drsg. No drainage noted. 8 armando removed from middle incision, steri strips applied and covered with a dry Telfa drsg. Pt tolerated well, denied any pain/discomfort during procedure. Incision located neared hip appeared to be opening. spool worker into assess as well. paged with concerns about removing staple and incision potentially opening further. MD going to consult surgery. Pt and caregiver, Andra at bedside and aware of plan. Addendum: 04/06/17 at 1354 by JUAN DALE RN MD Hospitalist in to see pt's incision. Three additional armando removed from site, remainder to be dc'd by tomorrow. Steri strips applied, dry abd pad placed over site. Pt tolerated well.
--- NOTE | 2017-04-06 12:30 | PCM.PNMED ---
Subjective Date of Service Apr 06, 2017 Subjective Patient has no complaints this morning. Some discomfort of hip incisional site but is in good control. Denies any weakness or lightheadedness chest pains or palpitations. Appetite is good, is drinking well also. Exam Vital Signs Vital Sign - Last Date Time Temp Pulse Resp B/P Pulse Ox O2 Delivery O2 Flow Rate FiO2 04/06/17 05:23 36.8 92 18 134/63 95 Room Air 04/04/17 17:29 1.50 Intake and Output 04/05/17 04/05/17 04/06/17 Cumulative From/Thru 14:59 22:59 06:59 04/04/17 12:00 - 04/06/17 06:36 Intake Total 2523 ml 1288 ml 6151 ml Output Total 400 ml 1150 ml 2650 ml Balance 2123 ml 138 ml 3501 ml Intake Oral 1273 ml 50 ml 1598 ml IV Total 1250 ml 1238 ml 4553 ml Output Urine Total 400 ml 1150 ml 2650 ml # Voids 1 2 # Bowel Movements 2 3 7 General: Alert, Oriented X3, Cooperative, No Acute Distress Mouth: Mucous Membr Moist/[place] Cardiovascular: Regular Rate/Rhythm Extremities: No cyanosis/clubbing/edma bilat Skin: Other (surgical incision site closed with armando, some areas continue to demonstrate possible incomplete healing on superior aspect, held by armando, only lower 3 removed today. ) Neurological: Grossly Neurologically Intact, Other IVs and Medications Medications Reviewed: Medications were reviewed in detail Lab and Diagnostics Result Diagram: 04/06/17 0834 X-Rays, CTs and MRIs [facility] Diagnostic [place] [address] Patient Name: FAWN ZAPATA MR#: [id number] Location: [facility] Ordering Phys: Serafin Mead MD Date of Service: 04/04/17 1418 PROCEDURE: CT ABDOMEN AND PELVIS WITH CONTRAST ([id number]) INDICATIONS: tender LLQ mass TECHNIQUE: After the administration of intravenous contrast, 5 mm thick sections acquired from the diaphragm to the symphysis. 5 mm coronal and sagittal reformats were acquired. For radiation dose reduction, the following was used: automated exposure control, adjustment of mA and/or kV according to patient size. COMPARISON: [facility], CR, XR CHEST 2VW, 11/11/2016, 9:48. [facility], CR, XR CHEST 1VW (PORTABLE), 07/13/2015, 6:10. [facility], CT, CT ANGIO CHEST PE, 03/28/2017, 17:50. FINDINGS: Image quality: Excellent. ABDOMEN: Lung bases: There is a small low-density left pleural effusion slightly decreased in size when compared to study dated 03/28/17. The heart is enlarged. No pericardial effusion. Solid organs: Liver and spleen are normal in size and enhancement. Gallbladder is unremarkable. Biliary system is non dilated. Pancreas enhances normally. No adrenal nodules. Kidneys demonstrate normal size and enhancement , without hydronephrosis. A nonobstructing 6 mm diameter calculus is present within the lower pole left kidney. Peritoneum and bowel: Bowel loops demonstrate normal wall thickness and caliber. No free fluid or air. Nodes and vessels: No retroperitoneal or mesenteric adenopathy by size criteria. Aorta and inferior vena cava are normal in size. There are scattered atheromatous calcifications throughout the aorta and iliac arteries bilaterally. Miscellaneous: There is a large, complex appearing left rectus sheath hematoma which measures 5.6 x 8.0 x 11.7 cm. A fluid/fluid level is present within. No ventral hernia. Scattered foci of subcutaneous emphysema overlies the left lower quadrant. There is mild fat stranding in the subcutaneous tissue suggesting subcutaneous hematoma. PELVIS: Genitourinary: Bladder wall thickness is normal. A small amount of gas is present within the bladder suggesting prior catheterization. Miscellaneous: No inguinal hernias or adenopathy. There is generalized anasarca. Bones: Bones are diffusely osteopenic. There is a right dynamic hip screw which is grossly intact, an acetabular screw on the right, a bilateral sacroiliac joint screw, and a left hip arthroplasty. Severe degenerative changes are present throughout the hip joints, sacroiliac joints, and lumbar spine. A severe wedge compression deformity is present at L2 this is stable when compared with the plain film dated 11/11/16. IMPRESSION: 1. Large left rectus sheath hematoma with a complex appearance and fluid/fluid level within. These findings suggest subacute, evolving hematoma. No definite active extravasation; however no arterial phase study was obtained. This finding was discussed with Dr. Mead at 4:31 PM on 04/04/17. 2. Small low-density left pleural effusion slightly decreased when compared with the study dated 03/28/17. 3. Nonobstructing left nephrolithiasis. 4. Punctate focus of gas in the bladder suggesting prior catheterization. If there is no history of recent catheterization, gas-forming cystitis could be included in the differential. 5. Extensive pelvic fixation and degenerative change. Dictated by: Jazmín Campo M.D. on 04/04/2017 at 16:21 Approved by: Jazmín Campo M.D. on 04/04/2017 at 16:36 Assessment & Plan 1 - Blood Loss Anemia Transfused 2 units packed red blood cells yesterday. CBC is stable at this time, no evidence of active bleeding. Patient had been given vitamin K per surgical recommendations. Dosing discussed with pharmacy. Although the INR did not reach 1.0 as hoped it is likely low enough to no longer be contributing to any bleeding into the rectus sheath, this is supported by stable CBC. [facility] with stable H& H and improving healing of wound decision site of hip. 2 - Rectus Sheath Hematoma/Anticoagulated with Coumadin. -Discussed with Dr. Grey and vitamin K was given as noted above. -INR is normalizing at this time and no evidence of active bleeding -It would be very unlikely that he would resume the Coumadin in the future. I have asked him to discuss that further with his primary care, Dr. Clay. -Observe and intervene only if worsens or becomes symptomatic in some other way. -This undoubtedly contributed to it to this post recovery anemia. 3 - Atrial Fibrillation -Holding Coumadin and anticoagulation for now. His emergency vehicle dispatcher will discuss with the patient and his family, and in the future with his primary care doctor, the issue of balancing the risk of stroke and DVT against the risk of similar bleeding complications as he has experienced. At this time he clearly needs to be off the Coumadin as bleeding is the more pressing risk. -Continue rate control with diltiazem and metoprolol. - We will consider initiation of aspirin at time of discharge which is a lesser anticoagulant but may still provide some protective benefit without at significant increased risk of bleeding. 4 - Recent left femur Fracture/ORIF - rodding -This appears to be healing well. Continue PT/OT here and back at the SNF soon. -Continue as needed oxycodone. -Removal of all armando deferred given poor wound healing noted at this time - May need to consider surgical consult if there is concern for dehiscence. We will continue to observe 1 more day in hospital. 5 - Severe Hearing Loss -This is long-standing. He is wearing his hearing aids. 6 - Hypertension Continue diltiazem and metoprolol. 7 - Osteoarthritis/Gout -Continue allopurinol and oxycodone. Pain Evaluation: Adequate Pain Control VTE Mechanical Devices: Venous Foot Pump Resuscitation Status: DNR/DNI:Do Not Resuscitate/Intubate Time spent 35 minutes Leon Leon DO Apr 06, 2017 12:30
[2017-04-06 14:17] VITALS: BP 116/74; PULSE 88; RESP 20; O2SAT 92
--- NOTE | 2017-04-06 14:35 | NUR ---
Order received for return to SNF. PHYLLIS spoke with Julieth at [facility] who states they can accept pt back with Dr. Reynsoo to follow. ELSA Jennings
[2017-04-06 18:40] VITALS: RESP 22; O2SAT 98
[2017-04-06 19:15] VITALS: BP 136/81; PULSE 117; RESP 24; O2SAT 98
[2017-04-06 20:44] VITALS: BP 132/73; PULSE 104; RESP 22; O2SAT 94
[2017-04-06 22:12] VITALS: BP 121/68; PULSE 81; RESP 20; O2SAT 94
[2017-04-07] MEDS: 0.9% Sodium Chloride 1,000 ML IV SCH (04:42)
[2017-04-07] MEDS: Artificial Tears 15 mL Ophthalmic Solution BOTH_EYES PRN (04:44)
[2017-04-07 05:14] VITALS: BP 134/74; PULSE 98; RESP 20; O2SAT 95
--- NOTE | 2017-04-07 05:55 | NUR ---
NOC activity Pt has been pleasant and cooperative with care. Reports of mild pain on hip. PRN oxycodone administered for relief. Denies chest pain, sob, n/v or abd discomfort. Provide pillow in between legs to prevent rotation of hip. HS meds administered as scheduled. VSS and has been afebrile overnight.
[2017-04-07] MEDS: Pantoprazole 40 mg ER24 Tablet PO SCH (07:36)
[2017-04-07] MEDS: Diltiazem CD 180 mg ER24 Capsule PO SCH (07:36)
[2017-04-07] MEDS: Polyethylene Glycol (PEG) 17 Gm Powder PO SCH (07:36)
[2017-04-07 08:19] LABS: BASOPHILS % (AUTO) 0.3 % (0-3); MONOCYTES % (AUTO) 6.8 % (4-12); Mean Corpuscular Hemoglobin 28.1 pg (27.0-35.0); Mean Corpuscular Volume 92.5 fL (81-100); NEUTROPHILS % (AUTO) 79.1 % (40-74); Platelet Count 299 bil/L (150-400)
--- NOTE | 2017-04-07 09:42 | NUR ---
armando armando removed by , steri-strips applied by this RN.
[2017-04-07 12:51] VITALS: BP 121/76; PULSE 75; RESP 20; O2SAT 94
--- NOTE | 2017-04-07 14:05 | NUR ---
Spoke Selena Summers CM at [facility] and she is needing call before patient discharges and she is needing to additional review before SNF transfer. Updated CLAM SHUCKER Addendum: 04/07/17 at 1624 by LOVE ARTIS CM Selena approved transfer for today return to [facility] Updated CLAM SHUCKER
--- NOTE | 2017-04-07 14:21 | PCM.DC.MED ---
Discharge Summary Date of Service Apr 07, 2017 Dates of Hospitalization Date of Hospital Admission Apr 04, 2017 at 13:53 Date of Discharge: Apr 07, 2017 Providers: Admitting Physician: Laurent Cortez MD Primary Care Physician: Naveen Clay MD Attending Physician: Laruent Cortez MD Diagnosis at Time of Discharge Diagnosis at Time of Discharge 1 - Blood Loss Anemia 2 - Rectus Sheath Hematoma/Anticoagulated with Coumadin. 3 - Atrial Fibrillation 4 - Recent left femur Fracture/ORIF - rodding 5 - Severe Hearing Loss 6 - Hypertension 7 - Osteoarthritis/Gout Procedures XRay, CTs & MRIs [facility] Diagnostic [place] [address] Patient Name: FAWN ZAPATA MR#: [id number] Location: [facility] Ordering Phys: Serafin Mead MD Date of Service: 04/04/17 1418 PROCEDURE: CT ABDOMEN AND PELVIS WITH CONTRAST ([id number]) INDICATIONS: tender LLQ mass TECHNIQUE: After the administration of intravenous contrast, 5 mm thick sections acquired from the diaphragm to the symphysis. 5 mm coronal and sagittal reformats were acquired. For radiation dose reduction, the following was used: automated exposure control, adjustment of mA and/or kV according to patient size. COMPARISON: [facility], CR, XR CHEST 2VW, 11/11/2016, 9:48. [facility], CR, XR CHEST 1VW (PORTABLE), 07/13/2015, 6:10. [facility], CT, CT ANGIO CHEST PE, 03/28/2017, 17:50. FINDINGS: Image quality: Excellent. ABDOMEN: Lung bases: There is a small low-density left pleural effusion slightly decreased in size when compared to study dated 03/28/17. The heart is enlarged. No pericardial effusion. Solid organs: Liver and spleen are normal in size and enhancement. Gallbladder is unremarkable. Biliary system is non dilated. Pancreas enhances normally. No adrenal nodules. Kidneys demonstrate normal size and enhancement , without hydronephrosis. A nonobstructing 6 mm diameter calculus is present within the lower pole left kidney. Peritoneum and bowel: Bowel loops demonstrate normal wall thickness and caliber. No free fluid or air. Nodes and vessels: No retroperitoneal or mesenteric adenopathy by size criteria. Aorta and inferior vena cava are normal in size. There are scattered atheromatous calcifications throughout the aorta and iliac arteries bilaterally. Miscellaneous: There is a large, complex appearing left rectus sheath hematoma which measures 5.6 x 8.0 x 11.7 cm. A fluid/fluid level is present within. No ventral hernia. Scattered foci of subcutaneous emphysema overlies the left lower quadrant. There is mild fat stranding in the subcutaneous tissue suggesting subcutaneous hematoma. PELVIS: Genitourinary: Bladder wall thickness is normal. A small amount of gas is present within the bladder suggesting prior catheterization. Miscellaneous: No inguinal hernias or adenopathy. There is generalized anasarca. Bones: Bones are diffusely osteopenic. There is a right dynamic hip screw which is grossly intact, an acetabular screw on the right, a bilateral sacroiliac joint screw, and a left hip arthroplasty. Severe degenerative changes are present throughout the hip joints, sacroiliac joints, and lumbar spine. A severe wedge compression deformity is present at L2 this is stable when compared with the plain film dated 11/11/16. IMPRESSION: 1. Large left rectus sheath hematoma with a complex appearance and fluid/fluid level within. These findings suggest subacute, evolving hematoma. No definite active extravasation; however no arterial phase study was obtained. This finding was discussed with Dr. Mead at 4:31 PM on 04/04/17. 2. Small low-density left pleural effusion slightly decreased when compared with the study dated 03/28/17. 3. Nonobstructing left nephrolithiasis. 4. Punctate focus of gas in the bladder suggesting prior catheterization. If there is no history of recent catheterization, gas-forming cystitis could be included in the differential. 5. Extensive pelvic fixation and degenerative change. Dictated by: Jazmín Campo M.D. on 04/04/2017 at 16:21 Approved by: Jazmín Campo M.D. on 04/04/2017 at 16:36 Brief History As per admission HPI by admitting physician, "He presents with a hgb of 6.9 at [facility] today. Exam documents a LLQ mass which on CT is a large Rectus Sheath Hematoma. His INR earlier today was apparently 1.9 and is 1.35 here. I spoke with General Surgery who recommended immediate Coumadin reversal and transfusion while following the hematoma for any changes. Normally no surgical intervention is needed. He will be receiving a 2 unit PRBC blood transfusion tonight. A week ago he was treated for a right hip intertrochanteric fracture with a nailing ORIF procedure and then was sent to [facility] for rehab. He was anemic at that time and was given a 2 unit blood transfusion post-operatively. When he left the hospital he was at 8.6. He has no abdominal pain. The SNF nurses report oozing in the ORIF bandages but there is no sign of bleeding from the incision on my exam today. " Hospital Course 1 - Blood Loss Anemia Transfused 2 units packed red blood cells yesterday. CBC is stable at this time, no evidence of active bleeding. Patient had been given vitamin K per surgical recommendations. Dosing discussed with pharmacy. Although the INR did not reach 1.0 as hoped it is likely low enough to no longer be contributing to any bleeding into the rectus sheath, this is supported by stable CBC at time of discharge 2 - Rectus Sheath Hematoma/Anticoagulated with Coumadin. -Discussed with Dr. Grey and vitamin K was given as noted above. -INR is normalizing at this time and no evidence of active bleeding -It would be very unlikely that he would resume the Coumadin in the future. Certainly it was held on discharge - I have asked him to discuss that further with his primary care, Dr. Kenney , Who will be forwarded this discharge summary - Adam now removed, incision site is well healing though there is some overlapping tissue on the superior aspect to poor approximation prior stapling. Nonetheless no active bleeding observed following removal of adam. 3 - Atrial Fibrillation -Holding Coumadin on discharge with initiation of only aspirin 81 mg to be continued. His landscaper helper will discuss with the patient and his family, and in the future with his primary care doctor, the issue of balancing the risk of stroke and DVT against the risk of similar bleeding complications as he has experienced. At this time he clearly needs to be off the Coumadin as bleeding is the more pressing risk. -Continue rate control with diltiazem and metoprolol. 4 - Recent left femur Fracture/ORIF - rodding -This appears to be healing well. PT confirms most appropriate placement is scheduled [facility] facility on discharge which is where he is planning to return - Continue daily wound assessment dressing changes as needed. 5 - Severe Hearing Loss -This is long-standing. He is wearing his hearing aids. 6 - Hypertension Continue diltiazem and metoprolol. 7 - Osteoarthritis/Gout -Continue allopurinol and oxycodone. Exam Vital Signs (Last) Date Time Temp Pulse Resp B/P Pulse Ox O2 Delivery O2 Flow Rate FiO2 04/07/17 12:51 36.7 75 20 121/76 94 Room Air 04/04/17 17:29 1.50 Exam General: Alert, Oriented X3, Cooperative, No Acute Distress Mouth: Mucous Membr Moist/[place] Cardiovascular: Regular Rate/Rhythm Extremities: No cyanosis/clubbing/edma bilat Skin: Surgical incision site closed with adam removed now held with Steri- Strips and gauze. Appears well healing, though poorly approximated. Test 04/04/17 11:58 04/04/17 15:40 04/05/17 03:15 04/07/17 08:05 Hold Purple Top Tube Received (Received) Hold Blue Top Tube Received (Received) Hold [place] Top Tube Received (Received) Urine Color [place] (YELLOW) Urine Appearance Clear (CLEAR,HAZY) Urine pH 5.5 (5.0-8.0) Urine Specific [place] 1.015 (1.003-1.035) Urine Protein 30mg/dL (NEG,TRACE) Urine Glucose (UA) Negativemg/dL (NEGATIVE) Urine Ketones Negativemg/dL (NEGATIVE) Urine Occult Blood Negative (NEGATIVE) Urine Nitrite Negative (NEGATIVE) Urine Bilirubin Negative (NEGATIVE) Urine Urobilinogen Normalmg/dL (NORMAL) Urine Leukocyte Esterase Negative (NEGATIVE) Urine RBC 0-2/hpf (0-2) Urine WBC 0-5/hpf (0-5) Urine Epithelial Cells Few/hpf (NONE-MOD) Urine Crystals None seen (NONE SEEN) Urine Bacteria Few/hpf (NONE-FEW) Urine Hyaline Casts None/lpf (NONE) Urine Granular Casts None seen (NONE SEEN) Urine Waxy Casts None seen (NONE SEEN) Urine Red Blood Cell Casts None seen (NONE SEEN) Urine White Blood Cell Casts None seen (NONE SEEN) Urine Mucus Present (None Seen) Urine Trichomonas None seen (NONE SEEN) Urine Yeast None (NONE SEEN) Urinalysis Comment None Urine Culture Reflexed Not indicated Prothrombin Time 13.2sec (8.1-12.5) Prothromb Time International Ratio 1.23ratio White Blood Count 7.8th/mm3 (3.8-10.1) Red Blood Count 3.35mil/mm3 (4.40-5.80) Hemoglobin 9.4g/dL (13.8-17.2) Hematocrit 31.0% (41.0-50.0) Mean Corpuscular Volume 92.5fL (81-100) Mean Corpuscular Hemoglobin 28.1pg (27.0-35.0) Mean Corpuscular Hemoglobin Concent 30.3% (32.0-37.0) Red Cell Distribution Width 19.8% (12.3-15.4) Platelet Count 299bil/L (150-400) Neutrophils (%) (Auto) 79.1% (40-74) Lymphocytes (%) (Auto) 7.0% (14-46) Monocytes (%) (Auto) 6.8% (4-12) Eosinophils (%) (Auto) 6.0% (0-5) Basophils (%) (Auto) 0.3% (0-3) Sodium Level 137mEq/L (134-144) Potassium Level 4.0mEq/L (3.5-5.2) Chloride Level 103mEq/L (97-108) Carbon Dioxide Level 24mmol/L (18-29) Blood Urea Nitrogen 14mg/dL (8-27) Creatinine 0.69mg/dL (0.76-1.27) Estimat Glomerular Filtration Rate 115mL/min (>59) Glucose Level 116mg/dL (60-99) Calcium Level 8.3mg/dL (8.5-10.1) Discharge Medications Discharge Medications Allopurinol (Allopurinol) 100 Mg Tablet 100 MG PO DAILY (Reported) Antiox#10/Om3/Dha/Epa/Lut/Zeax (I-Caps with Lutein-[place] 3 Sfg) 1 Each Capsule 1 EACH PO DAILY (Reported) Calcium Carbonate (Tums) 500 Mg Tab.chew 500 MG PO TID (Reported) Cholecalciferol (Vitamin D3) (Vitamin D) 1,000 Unit Capsule 1,000 UNIT PO DAILY (Reported) Diltiazem ER (Cardizem CD) 180 Mg Cap.er.24h 180 MG PO DAILY Prescribed by: RUBY TORRES MD Docusate Sodium (Docusate Sodium) 250 Mg Capsule 250 MG PO BID (Reported) Ferrous Sulfate (Ferrous Sulfate) 325 Mg Tablet 325 MG PO DAILY (Reported) Metoprolol Tartrate (Metoprolol Tartrate) 100 Mg Tablet 100 MG PO BID (Reported ) Mv,Minerals/FA/Lycopene/Ginkgo (One Daily For Men 50+ Adv Tab) 1 Each Tablet 1 EACH PO DAILY (Reported) Omeprazole (Omeprazole) 20 Mg Tablet.dr 20 MG PO DAILY (Reported) Polyethylene Glycol 3350 (Miralax) 17 Gm Powd.pack 17 GM PO BID (Reported) Potassium Chloride ER (Klor-Con M15) 15 Meq Tablet 15 MEQ PO DAILY (Reported) Sennosides (Senna) 8.6 Mg Tablet 8.6 MG PO DAILY (Reported) Tamsulosin ER (Tamsulosin ER) 0.4 Mg Cap.er.24h 0.4 MG PO QAM (Reported) Warfarin Sodium (Warfarin Sodium) 5 Mg Tablet 5 MG PO QPM (Reported) As needed Acetaminophen (Acetaminophen) 325 Mg Capsule 650 MG PO Q4H PRN PRN For Pain ( Reported) Bisacodyl (Dulcolax Rectal) 10 Mg Supp.rect 10 MG RC DIRECTED PRN PRN For Constipation (Reported) Dextran 70/Hypromellose/Pf (Artificial Tears Drops) 1 Each Droperette 1 DROP BOTH_EYES BID PRN PRN dry eye Prescribed by: GISELE FITZGERALD MD Magnesium Hydroxide (Milk of Magnesia) 400 Mg/5 Ml Oral.susp 30 ML PO DIRECTED PRN PRN For Constipation (Reported) Na Phos,M-B/Na Phos,Di-Ba (Fleet Enema) 133 Ml Enema 133 ML RC DIRECTED PRN PRN For Constipation (Reported) oxyCODONE (oxyCODONE) 5 Mg Tablet 5-10 MG PO Q4H PRN PRN For Pain (Reported) Followup Plan Discharge Diet: No restrictions, Heart Healthy Discharge Activity: Limited until seen by PCP Follow-up Provider: Naveen Clay MD Follow-up with PCP in: 1 week Time spent 45 minutes copies to: Naveen Clay MD, Benjamin P DO Apr 07, 2017 14:21
[2017-04-07] MEDS ORDERED: ASPI-973 PO (14:38)
--- NOTE | 2017-04-07 14:39 | PCM.DIMED ---
Discharge Instructions Date of Service Apr 07, 2017 Dates of Hospitalization Apr 04, 2017 at 13:53 Discharge Diagnosis Discharge Diagnosis 1 - Blood Loss Anemia 2 - Rectus Sheath Hematoma/Anticoagulated with Coumadin. 3 - Atrial Fibrillation 4 - Recent left femur Fracture/ORIF - rodding 5 - Severe Hearing Loss 6 - Hypertension 7 - Osteoarthritis/Gout Diet Discharge Diet: No restrictions, Heart Healthy Activity Discharge Activity: Limited until seen by PCP Patient Instructions Patient Instructions Given large hematoma which presented while on warfarin therapy it is then recommended that you discontinue this medication at this time. You have instead been prescribed aspirin 81 mg tabs to be taken daily in place of warfarin. He can discuss further with primary care physician on discharge the possibility of restarting warfarin therapy when blood levels are stable and incision site from femoral fracture completely healed. Follow-up Provider: Naveen Clay MD Follow-up with PCP in: 1 week Leon Leon DO Apr 07, 2017 14:39
--- NOTE | 2017-04-07 15:56 | NUR ---
Social Work-discharge: Data:EMR Reviewed. Pt is on day 3 of hospitalization for sever anemia per H&P. Pt is medically stable for discharge. PT has seen pt and recommended SNF. UR specialist spoke with [facility] and they have authorized pt for SNF. PHYLLIS faxed orders to Shani at [facility] and confirmed that they received fax. UR Specialist and SW reviewed pt and feel like pt meets criteria to go BLS. UR Specialist arranged BLS for 1645. SW updated pt and explained that SW cannot guarantee and insurance will cover the cost of BLS, pt agreeable to proceed. PHYLLIS updated pt's son and daughter in law via phone and also caregiver Andra via phone. Rn,UC,pt/family, and [facility] all updated and agreeable to plan. Assessment:Pt who would benefit from SNF. Plan:Pt to discharge to [facility] today via BLS at 1645. Insurance authorization has been obtained. Rn,UC,pt/family, and [facility] all updated and agreeable to plan. ELSA Jennings
--- NOTE | 2017-04-07 16:23 | NUR ---
Arranged BLS transport via [facility] for 1645 cone picker for return to [facility] per MD order.
--- NOTE | 2017-04-07 17:03 | NUR ---
discharge pt denies pain/distress at time of discharge. 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
== END 2017-04-07 17:54 | DRG 813 ==
LOC: EDUNIT# 11:58 → EDBD 11:58 → SED 11:58 → MPC 13:53 → OBSVTOIN 13:53
PROVIDERS: ADMIT Family Medicine; ATTEND Family Medicine
PROC: 30233N1 Transfusion of Nonautologous Red Blood Cells into Peripheral Vein, Percutaneous Approach (ICD-10-PCS; principal; 2017-04-04)
DX: D68.32 Hemorrhagic disorder due to extrinsic circulating anticoagulants (principal); D62 Acute posthemorrhagic anemia; T45.515A Adverse effect of anticoagulants, initial encounter; Z79.01 Long term (current) use of anticoagulants; Z85.46 Personal history of malignant neoplasm of prostate; Z90.79 Acquired absence of other genital organ(s); Z86.73 Personal history of transient ischemic attack (TIA), and cerebral infarction without residual deficits; Z87.891 Personal history of nicotine dependence; I48.91 Unspecified atrial fibrillation; I10 Essential (primary) hypertension; M10.9 Gout, unspecified; Z66 Do not resuscitate; M19.90 Unspecified osteoarthritis, unspecified site; M79.81 Nontraumatic hematoma of soft tissue

== ENCOUNTER 2017-05-09 13:05 | Inpatient (IN) | payer MEDICARE ==
[2017-05-09] VITALS (14 sets, daily range): BP systolic 95–127; BP diastolic 54–72; PULSE 98–155; RESP 14–28; O2SAT 95–100
[~2017-05-09] VITALS: Ht 177.8 cm; Wt 73.0 kg
[~2017-05-09 13:05] MED LIST changes: -ACET-171 PO; +ACET325C PO; +ASPI-973 PO; +BISA10SU61 RC; +FERR-83 PO; -LOV80 SUBQ; +MAGN400O4 PO; +NA P133E23 RC; -OXYC1TAB24 PO; -WARF4TAB6 PO
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
[2017-05-09 13:27] LABS: BASOPHILS % (AUTO) 0.2 % (0-3); EOSINOPHILS % (AUTO) 0.8 % (0-5); Mean Corpuscular Hemoglobin 29.8 pg (27.0-35.0); Mean Corpuscular Volume 94.5 fL (81-100); NEUTROPHILS % (AUTO) 84.7 % (40-74); Platelet Count 251 bil/L (150-400)
[2017-05-09] MEDS ORDERED: 0.9% Sodium Chloride 1,000 ML IV ONE (13:31)
[2017-05-09 13:33] LABS: INR 2.07 ratio
[2017-05-09] MEDS ORDERED: Ondansetron 2 mg/mL 2 mL Inj IVPUSH ONE (13:35)
[2017-05-09] MEDS: HYDROmorphone 0.5 mg/0.5 mL iSecure Syringe IVPUSH PRN ×2 (13:45→13:57)
[2017-05-09 13:52] LABS: Magnesium 2.1 mg/dL (1.6-2.6)
--- NOTE | 2017-05-09 15:03 | DRSVH ---
PROCEDURE: CT ABDOMEN AND PELVIS WITH CONTRAST ([id number]) INDICATIONS: abdominal pain TECHNIQUE: After the administration of oral and intravenous contrast, 5 mm thick sections acquired from the diap hragms to the symphysis. 5 mm thick coronal and sagittal reformats were performed. For radiation do se reduction, the following was used: automated exposure control, adjustment of mA and/or kV accordi ng to patient size. COMPARISON: [facility], CT, CT ABD PELVIS W CON, 04/04/2017, 15:08. [facility] , CT, ABD/PELVIS W&WO CON (PNL), 09/07/2009, 12:42. FINDINGS: Image quality: Diagnostic. ABDOMEN: Lung bases: The imaged lung bases demonstrate interstitial prominence, which appears to represent a c hronic process. The heart is enlarged. No significant pericardial effusion is identified. Solid organs: The liver is grossly unremarkable. The spleen is enlarged, similar to the prior study. The adrenals and kidneys are within normal limits. There is no hydronephrosis. An inferior left r enal calculus is noted. This is unchanged in position. The pancreas is within normal limits. Peritoneum and bowel: There is a moderate-sized hiatal hernia that is more prominent on the current s tudy. Otherwise, the stomach, duodenum, and remainder of the small bowel loops are nondilated. The colon is grossly unremarkable. The distal colon is not well seen within the deep pelvis related to m etallic artifact. No complete bowel obstruction is present. There is no free fluid, loculated fluid collection or free air within the peritoneal cavity. However, along the anterior abdominal wall, th ere is an ovoid soft tissue abnormality that appears to be positioned within the left abdominal wall muscles that measures approximately 2.8 x 4.4 x 6.5 cm (image 54, series 2), which has significantly decreased in the antrum, previously measuring approximately 5.4 x 9.8 x 12.2 cm when remeasured in a similar configuration. No new masses or lesions involving the abdominal wall are identified. A smal l fat containing periumbilical hernia is evident. No additional hernias are appreciated. Nodes and vessels: No retroperitoneal or mesenteric adenopathy. Aorta and inferior vena cava are no rmal in caliber. There is extensive aortic atherosclerosis. Bones: Chronic posterior left lower rib fractures are evident, which are healed. No suspicious osseo us lesions or acute fractures are evident. There is a prominent compression deformity involving the L1 vertebral body with mild retropulsion, not significantly changed. Advanced multilevel degenerativ e changes of the lumbar spine are present. There is grade 1/2 anterolisthesis of L4 and L5. Postope rative changes related to prior laminectomy at the L3 and L4 levels is evident. PELVIS: Genitourinary: The urinary bladder is not well seen related to overlying metallic artifact. No defin ite bladder wall thickening is evident. Calcification at the base of the bladder is noted, similar t o the previous exam. Other pelvic soft tissues: No large inguinal hernias or adenopathy. There may be a small fat contai cristo left inguinal hernia. No free fluid, loculated fluid collection, or free air is evident. Howev er, evaluation of the deep pelvic structures is somewhat difficult on the study related to metallic a rtifact from overlying orthopedic hardware. There is prominent edema identified involving the right gluteus vladimir muscle. Just below the level of the ischial tuberosity and along the posteromedial b order of the proximal femoral shaft, there is soft tissue mass evident that measures 6.2 x 9.3 by at least 5.0 cm, demonstrating increased attenuation, likely representing a hematoma given surrounding e mojgan. Bones: No suspicious bony lesions. No acute pelvic fractures are identified. There are postoperati ve changes of the bilateral proximal femurs, acetabula, and sacroiliac joints. His postoperative pravin nges are similar to the prior exam. Ossific density is identified within the soft tissues anterior t o the right femoral head, which may represent an avulsed lesser trochanter, unchanged since the previ ous examination dated 04/04/17. IMPRESSION: 1. No definite acute abnormality within the abdomen or pelvis. 2. Resolving anterior left abdominal wall hematoma. 3. Right gluteal/posterior proximal thigh soft tissue mass has developed in the interim with surroun ding edema, most likely representing a hematoma. Clinical correlation is recommended. An ultrasound would be helpful for better evaluation to exclude the possibility of a developing soft tissue mass. 4. Moderate-sized hiatal hernia is more pronounced on the current study. 5. Nonobstructing left renal calculus. 6. No bowel obstruction. 7. Splenomegaly. 8. Multilevel degenerative and postoperative changes of the imaged spine and pelvis. There is chron ic avulsion of the lesser trochanter of the right hip, which is displaced anterior to the femoral hea d, unchanged since the prior study. No acute osseous abnormalities are evident. 9. Cardiomegaly. Dictated by: Shad Arevalo M.D. on 05/09/2017 at 13:39 Approved by: Shad Arevalo M.D. on 05/09/2017 at 14:01
[2017-05-09] MEDS ORDERED: Diltiazem 5 mg/mL 5 mL Inj IVPUSH ONE ×2 (15:35→18:30)
[2017-05-09] MEDS ORDERED: WARF6TAB6 PO (15:38)
[2017-05-09] MEDS ORDERED: Alum-Mag Hydrox-Simeth 30 mL Suspension PO PRN ×2 (16:05→16:25)
[2017-05-09] MEDS ORDERED: Ondansetron 2 mg/mL 2 mL Inj IVPUSH PRN ×2 (16:05→16:25)
[2017-05-09] MEDS ORDERED: Polyethylene Glycol (PEG) 17 Gm Powder PO PRN (16:25)
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
[2017-05-09] MEDS ORDERED: MeTOProlol 1 mg/mL 5 mL Inj IVPUSH PRN (18:35)
--- NOTE | 2017-05-09 19:05 | NUR ---
Resumed Care/Arrival/Heart Rate Pt. arrived to room 1019 OSC from the ED at about 1630 in which I was taking over. Pt. arrived with his fist unit of blood finishing up. Have not stated 2nd unit of blood and will pass onto next shift. made aware. Diltiazem IV push once 5mL (25mg) given for a heart rate of 130-140 per tele. At this time Pts. heart rate is in the low 100s. Pt. tolerated well stating feeling "normal". Pt. denies CP, SOB, or any other type of pain at this time.
[2017-05-09 19:41] LABS: APPEARANCE,URINE HAZY (CLEAR,HAZY); COLOR,URINE DARK YELLOW (YELLOW)
[2017-05-09 19:42] LABS: OCCULT BLOOD,URINE NEGATIVE (NEGATIVE); UROBILINOGEN,URINE 2 mg/dL (NORMAL)
[2017-05-09] MEDS: Polyethylene Glycol (PEG) 17 Gm Powder PO SCH (23:30)
[2017-05-10] VITALS (9 sets, daily range): BP systolic 94–125; BP diastolic 40–75; PULSE 75–148; RESP 16–20; O2SAT 94–100
[2017-05-10 00:42] LABS: BASOPHILS % (AUTO) 0.1 % (0-3); EOSINOPHILS % (AUTO) 2.5 % (0-5); MONOCYTES % (AUTO) 9.1 % (4-12); Mean Corpuscular Hemoglobin 28.5 pg (27.0-35.0); Mean Corpuscular Volume 90.6 fL (81-100); NEUTROPHILS % (AUTO) 82.4 % (40-74); Platelet Count 211 bil/L (150-400)
--- NOTE | 2017-05-10 01:20 | NUR ---
HR/ BP/ Blood administration/ Skin Patient A&OX3 and pleasant this evening. 2nd unit of PRBCs needing to be hung per RN shift report. Blood already in room, but exceeded 30min time frame, had been on floor for 2 hours and not started, so new unit was picked up from lab and old unit was discarded. Start time vitals were 95/58 , HR 114, RR 18, T 36.5. Patient denies CP/ SOB. Blood started at 2014 and after 15 minutes, vitals were 99/61 HR 98 T 36.6 RR 14, and patient did not present with any S/S that were indicative of a transfusion reaction. Post blood vitals 109/62, T 36.7, HR 99, RR 14. Patient was scheduled to receive 100mg metoprolol PO as well as an evening dose of flomax. MD notified to clarify order, and states to hold both medications due to patients low BP. Patient is on tele. MD has also asked for a stat CBC and CMP to be drawn 1 hour post blood transfusion. Lab draw was completed and H/H & RBC showed some improvement. MD notified, and states to have H/H drawn Q 4 hours. Will continue to monitor and continue Q1 hour checks. Skin Patients heels boggy/skin intact and sacrum/coccyx is red and non-blanchable/skin intact. Mepelex's have been applied to both heels and buttock to protect skin. Addendum: 05/10/17 at 0707 by EFRAIN HAMMOND RN Per report, patient is to receive 2 units of PRBCs, then labs would be drawn in the am to determine if initial blood was needed.
[2017-05-10] MEDS: Diltiazem CD 180 mg ER24 Capsule PO SCH (07:59)
[2017-05-10] MEDS: Polyethylene Glycol (PEG) 17 Gm Powder PO SCH ×2 (08:21→21:04)
--- NOTE | 2017-05-10 09:00 | NUR ---
Afib RVR this am pts HR increased again, still in Afib 148-150s at rest, asymptomatic, BP 118/74, gave scheduled PO Diltiazem and Metoprolol, at 0813 his HR decreased to Afib 70s and has maintained 70-80s, except when he got up to [facility], at that time increased to 110s. His BP decreased to 90/40 but he did not have any dizziness, not even when he was standing. Also of note, pts urine continues to be very dark and orangy colored
[2017-05-10] MEDS: HYDROcodone-APAP 5-325 mg Tablet PO PRN ×2 (10:41→21:03)
--- NOTE | 2017-05-10 16:29 | NUR ---
Social Work- Multidisciplinary Rounds Pt discussed in rounds. Anticipated discharge in multiple more days. SW unable to see pt today due to high census. SW will continue to follow. ELSA Umana
--- NOTE | 2017-05-10 17:24 | PCM.PNMED ---
Subjective Date of Service May 10, 2017 Subjective HR is 140's before morning meds. Pt denies sx. Exam Vital Signs Vital Sign - Last Date Time Temp Pulse Resp B/P Pulse Ox O2 Delivery O2 Flow Rate FiO2 05/10/17 13:37 36.7 78 16 96/40 95 Room Air 05/10/17 07:55 3.00 Intake and Output 05/09/17 05/09/17 05/10/17 Cumulative From/Thru 15:00 23:00 07:00 05/09/17 13:12 - 05/10/17 06:09 Intake Total 1000 ml 200 ml 800 ml 2000 ml Output Total 0 ml 200 ml 200 ml Balance 1000 ml 200 ml 600 ml 1800 ml Intake Oral 200 ml 400 ml 600 ml IV Total 1000 ml 100 ml 1100 ml Packed Cells 300 ml 300 ml Output Urine Total 0 ml 200 ml 200 ml # Bowel Movements 1 1 Exam General: No acute distress, frail elderly male in comfortably in hospital bed. Appears pale. HEENT: Normocephalic, atraumatic. External ears without defect. Pupils equal, round, and reactive to light and accommodation. Anicteric sclerae, pale conjunctivae, and no lid lag. Oropharynx free of erythema and cobble stoning with moist mucosa. Neck: Supple with full range of motion. No jugular venous distension. No lymphadenopathy or thyromegaly. Cardiovascular: Regular rate with irregular rhythm with no murmurs, rubs, or gallops appreciated Pulmonary: Clear to auscultation bilaterally with no crackles, wheezes, or rhonchi. Normal respiratory effort with no use of accessory muscles. Abdomen: Bowel tones present. Soft, nontender, nondistended. No hepatosplenomegaly or masses appreciated. Extremities: No clubbing, cyanosis, edema, or lymphadenopathy appreciated. Right thigh appears normal, however is firm to the touch. No overt bruising visible. Skin: Normal temperature, turgor, and texture; no rash, ulcers, or subcutaneous nodules appreciated. Neurological: Cranial nerves grossly intact. Normal muscle strength, tone, and bulk. Reflexes, coordination, and sensory function within normal limits. Psychiatric: Normal mood and affect. Alert and oriented to person, place, and time. Lab and Diagnostics Result Diagram: 05/10/17 1645 05/10/17 0025 X-Rays, CTs and MRIs CT ABDOMEN AND PELVIS WITH CONTRAST ([id number]) IMPRESSION: 1. No definite acute abnormality within the abdomen or pelvis. 2. Resolving anterior left abdominal wall hematoma. 3. Right gluteal/posterior proximal thigh soft tissue mass has developed in the interim with surrounding edema, most likely representing a hematoma. Clinical correlation is recommended. An ultrasound would be helpful for better evaluation to exclude the possibility of a developing soft tissue mass. 4. Moderate-sized hiatal hernia is more pronounced on the current study. 5. Nonobstructing left renal calculus. 6. No bowel obstruction. 7. Splenomegaly. 8. Multilevel degenerative and postoperative changes of the imaged spine and pelvis. There is chronic avulsion of the lesser trochanter of the right hip, which is displaced anterior to the femoral head, unchanged since the prior study. No acute osseous abnormalities are evident. 9. Cardiomegaly. Dictated by: Shad Arevalo M.D. on 05/09/2017 at 13:39 Assessment & Plan Osmar Geiger is an 87-year-old man with past medical history significant for atrial fibrillation on warfarin, recent rectus sheath hematoma and recent right hip intratrochanteric fracture with a pinning ORIF procedure with recurrent chronic anemia due to various bleeds without history of GI bleed who presented to the [facility] emergency department from [facility] due to dropping H&H. Acute blood loss anemia secondary to glutea/posterior proximal thigh hematoma post surgery, present on admission, active -Patient seems to have suffered multiple bleeds over the last few months. He had a rectus sheath bleed and now presents with what appears to be a hematoma post ORIF -Patient will be transfused 2 units of blood by emergency department. -We will not be reversing the patient's warfarin as patient suffered a TIA once his warfarin was reversed -We monitoring H&H closely Atrial fibrillation and rapid ventricular response, present on admission, active -Likely exacerbated by patient's anemia -Status post 20 mg of IV Cardizem 1 with significant improvement. -Should patient's heart rate increased again will treat with repeat IV Cardizem dose. -We will hold warfarin for tonight and consider restarting tomorrow. -We will continue by mouth Cardizem and metoprolol. Recent right femur fracture status post ORIF -Careful physical therapy given patient's bleed. Severe hearing loss Hypertension -Continue home medications Gout -Continue home medications CODE STATUS: DNR/DNI Patient is admitted under inpatient status with expected length of stay greater than 2 midnights due to severity of presenting symptoms, risk of adverse event, and complexity of treatment plan. Pain Evaluation: Adequate Pain Control Resuscitation Status: DNR/DNI:Do Not Resuscitate/Intubate Nick Schreiber MD May 10, 2017 17:24
[2017-05-10] MEDS: 0.9% Sodium Chloride 1,000 ML IV SCH (21:04)
--- NOTE | 2017-05-10 23:55 | NUR ---
H/H/BP-Hr Serial H/H @ 1645 was 8.3/26.6 and at 2205 was 7.9/25.8. Night hospitalist paged with FELIBERTO. No new orders received. BP @ 1913 was 106/63 with HR 121 (groundwater monitoring technician called and stated "bouncing up into the 140's). Auscultation was fast and irregular. 100mg po scheduled metoprolol given and BP rechecked at 2330 which was 94/56 and hr in the 90s. Pt states "I feel fine." Pt does not appear overly pale and sleepy. Easy to wake. Care contregulo Addendum: 05/11/17 at 0158 by ENDY SAGASTUME RN H/H @ 0025 7.4/24.4 PAGED REGARDING DECREASE IN H/H. PT CONTINUES TO REST COMFORTABLY ;WAKING WITH Q2 TURNS. YENY CONTRegulo
--- NOTE | 2017-05-11 04:16 | NUR ---
SCD Contradiction Order from admitting MD to avoid SCDs as they are a contradiction with the pts dx. Care conts
--- NOTE | 2017-05-11 04:17 | NUR ---
Right hip Right hip area and down towards knee remain slightly discolored with a tinge of blue/purple. Area remains taunt to the touch. Medicated with 2 tabs vicodin po once this shift for pain 2/10. Pt states that he wants his pain to remain a 2/10 that is why he takes the pain pills. Q 2 turns and hourly rounding cont.
[2017-05-11 05:53] VITALS: PULSE 108
[2017-05-11 06:20] LABS: BASOPHILS % (AUTO) 0.2 % (0-3); MONOCYTES % (AUTO) 9.6 % (4-12); Mean Corpuscular Hemoglobin 28.5 pg (27.0-35.0); Mean Corpuscular Volume 92.1 fL (81-100); NEUTROPHILS % (AUTO) 72.1 % (40-74); Platelet Count 198 bil/L (150-400)
[2017-05-11 07:03] VITALS: BP 102/56; PULSE 77; RESP 20; O2SAT 96
[2017-05-11] MEDS: Diltiazem CD 180 mg ER24 Capsule PO SCH (09:14)
[2017-05-11 09:40] LABS: INR 1.55 ratio
[2017-05-11] MEDS ORDERED: Artificial Tears 15 mL Ophthalmic Solution BOTH_EYES PRN (10:25)
[2017-05-11] MEDS: Polyethylene Glycol (PEG) 17 Gm Powder PO SCH ×2 (10:27→20:02)
[2017-05-11] MEDS: HYDROcodone-APAP 5-325 mg Tablet PO PRN (10:28)
[2017-05-11] MEDS: 0.9% Sodium Chloride 1,000 ML IV SCH (10:29)
[2017-05-11 12:24] VITALS: BP 100/55; PULSE 105; RESP 21; O2SAT 97
--- NOTE | 2017-05-11 15:06 | PCM.PNMED ---
Subjective Date of Service May 11, 2017 Subjective Patient no overnight events. Is complaining of right hip pain however this is chronic. Says his right thigh swelling is also chronic. Patient does have problems ambulating but he says this is otherwise getting physical therapy at [facility] Exam Vital Signs Vital Sign - Last Date Time Temp Pulse Resp B/P Pulse Ox O2 Delivery O2 Flow Rate FiO2 05/11/17 12:24 36.7 105 21 100/55 97 Room Air 05/10/17 07:55 3.00 Intake and Output 05/10/17 05/10/17 05/11/17 Cumulative From/Thru 15:00 23:00 07:00 05/09/17 13:12 - 05/11/17 06:35 Intake Total 1100 ml 622 ml 3722 ml Output Total 600 ml 800 ml Balance 500 ml 622 ml 2922 ml Intake Oral 1100 ml 1700 ml IV Total 622 ml 1722 ml Packed Cells 300 ml Output Urine Total 600 ml 800 ml # Bowel Movements 2 3 Exam Gen: NAD, AOx4, HEENT: NCAT, PERRLA, EOMI, MMM, sclera anicteric. Neck: Soft, supple, no thyromegaly/JVD/LAD. Resp: CTAB, no R/R/W. CV: S1 S2, Irreg, Abd: Soft, (+) BS, NT/ND, no guarding/rebound/organomegaly. Ext: +PP, R Thigh- +1 pitting edema. Some TTP. Skin: warm/dry/intact No visible hematoma on R buttock or Abd. Neuro/Psych: Cooperative, appr mood/affect. CN II-XII grossly intact. No focal deficits. IVs and Medications Medications Reviewed: Medications were reviewed in detail Lab and Diagnostics Result Diagram: 05/11/1752805/11/17528 X-Rays, CTs and MRIs CT ABDOMEN AND PELVIS WITH CONTRAST ([id number]) IMPRESSION: 1. No definite acute abnormality within the abdomen or pelvis. 2. Resolving anterior left abdominal wall hematoma. 3. Right gluteal/posterior proximal thigh soft tissue mass has developed in the interim with surrounding edema, most likely representing a hematoma. Clinical correlation is recommended. An ultrasound would be helpful for better evaluation to exclude the possibility of a developing soft tissue mass. 4. Moderate-sized hiatal hernia is more pronounced on the current study. 5. Nonobstructing left renal calculus. 6. No bowel obstruction. 7. Splenomegaly. 8. Multilevel degenerative and postoperative changes of the imaged spine and pelvis. There is chronic avulsion of the lesser trochanter of the right hip, which is displaced anterior to the femoral head, unchanged since the prior study. No acute osseous abnormalities are evident. 9. Cardiomegaly. Dictated by: Shad Arevalo M.D. on 05/09/2017 at 13:39 Assessment & Plan Osmar Geiger is an 87-year-old man with past medical history significant for atrial fibrillation on warfarin, recent rectus sheath hematoma and recent right hip intratrochanteric fracture with a pinning ORIF procedure with recurrent chronic anemia due to various bleeds without history of GI bleed who presented to the [facility] emergency department from [facility] due to dropping H&H. #Acute blood loss anemia secondary to glutea/posterior proximal thigh hematoma post surgery, present on admission, active -Patient seems to have suffered multiple bleeds over the last few months. He had a rectus sheath bleed and now presents with what appears to be a hematoma post ORIF -Patient will be transfused 2 units of blood by emergency department. -We will not be reversing the patient's warfarin as patient suffered a TIA once his warfarin was reversed -Hemoglobin has been stable after transfusion. -No worsening of the hematoma. -Soft tissue ultrasound of right gluteal region performed. #Atrial fibrillation and rapid ventricular response, present on admission, active -Likely exacerbated by patient's anemia -Status post IV Cardizem 2 doses. Transition to by mouth Cardizem and metoprolol. Rate has been controlled over 24 hours -We will continue by mouth Cardizem and metoprolol at home doses. -Coumadin was held, INRs now subtherapeutic. Had discussion with patient regarding the risk benefit of continuing Coumadin despite history of falls. Patient does have a caregiver that assist him. Patient is undergoing physical therapy and thinks he is getting stronger. He says that he understands that he might has severe bleeds while being on Coumadin.Patient says that he would like to continue the Coumadin prevent possible stroke. Have encouraged him to further discuss this with his family and family doctor - Unless hematomas larger can resume Coumadin tonight. #Recent right femur fracture status post ORIF during past admission. -Careful physical therapy given patient's bleed. -She appears to have chronic +1 pitting edema of right thigh. -Venous duplex right extremity performed to rule out DVT #Severe hearing loss #Hypertension -Continue home medications #Gout -Continue home medications CODE STATUS: DNR/DNI Patient is admitted under inpatient status with expected length of stay greater than 2 midnights due to severity of presenting symptoms, risk of adverse event, and complexity of treatment plan. Dispo- -Discussion with patient regarding the risk benefit of continuing Coumadin despite history of falls. Patient does have a caregiver that assists him. Patient is undergoing physical therapy and thinks he is getting stronger. He says that he understands risk of bleeds while being on Coumadin. Patient says that he would like to continue the Coumadin to prevent possible stroke and have encouraged him to further discuss this with his family and PCP. - Can return to [facility] once med cleared to continue his physical therapy . Pain Evaluation: Adequate Pain Control Resuscitation Status: DNR/DNI:Do Not Resuscitate/Intubate Nick Schreiber MD May 11, 2017 15:06
--- NOTE | 2017-05-11 15:54 | NUR ---
Social Work- Multidisciplinary Rounds Pt discussed in rounds. Pt is from [facility] and Shani at [facility] is agreeable to pt returning at discharge. SW unable to see pt today due to high census. SW will continue to follow. ELSA Umana
[2017-05-11 16:43] VITALS: BP 110/65; PULSE 99; RESP 20; O2SAT 97
--- NOTE | 2017-05-11 18:50 | DRSVH ---
PROCEDURE: US VEINOUS LEG DUPLEX UNILATERAL, RIGHT INDICATIONS: R Hip Pain. Rule out DVT TECHNIQUE: Real-time imaging, as well as color and pulse Doppler interrogation, were performed of the lower extr emity deep veins from the inguinal ligament to the popliteal fossa. COMPARISON: None. FINDINGS: There is no evidence of acute DVT. There is chronic appearing wall thickening of the deep veins of the right lower extremity. Popliteal vein is not seen. No focal fluid collection to indicate abscess. IMPRESSION: 1. No evidence of acute DVT. 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 2. No evidence of abscess. Dictated by: Stiven Black M.D. on 05/11/2017 at 18:48 Approved by: Stiven Black M.D. on 05/11/2017 at 18:49
--- NOTE | 2017-05-11 19:37 | PCM.PHAPRO ---
Progress Dropping H&H WARFARIN DOSING PER PHARMACY Indication: Afib Home dose: 5.5mg PO daily INR Goal: 2-3 DI: Allopurinol Additional abx: N/A Hct/plt: 25.5/198 INR: 1.55 P: Will give one time dose of warfarin 6mg PO tonight Pharmacy will continue to follow, thank you Nanci Carpio PharmD May 11, 2017 19:37
[2017-05-11 20:00] VITALS: PULSE 101
[2017-05-11 20:33] VITALS: BP 108/69; PULSE 53; RESP 18; O2SAT 100
[2017-05-12] MEDS: 0.9% Sodium Chloride 1,000 ML IV SCH ×2 (01:04→09:25)
[2017-05-12 05:51] VITALS: BP 110/68; PULSE 58; RESP 16; O2SAT 100
[2017-05-12 06:07] LABS: INR 1.37 ratio
--- NOTE | 2017-05-12 06:08 | NUR ---
Pain Pt. has denied pain so far this shift. Pt. slept well. Will continue to monitor.
[2017-05-12 08:18] LABS: BASOPHILS % (AUTO) 0.2 % (0-3); EOSINOPHILS % (AUTO) 6.7 % (0-5); MONOCYTES % (AUTO) 10.2 % (4-12); Mean Corpuscular Hemoglobin 28.6 pg (27.0-35.0); Mean Corpuscular Volume 92.5 fL (81-100); NEUTROPHILS % (AUTO) 74.4 % (40-74); Platelet Count 214 bil/L (150-400)
--- NOTE | 2017-05-12 09:00 | NUR ---
Tele/ tachycardia Received call from telemetry that pt's HR was 142. Checked on pt and he said he was feeling fine. BANKING ANALYST reported that the hospitalist had just been in the pt's room. Care continues.
[2017-05-12] MEDS: Diltiazem CD 180 mg ER24 Capsule PO SCH (09:25)
[2017-05-12] MEDS: Polyethylene Glycol (PEG) 17 Gm Powder PO SCH (09:26)
[2017-05-12 11:38] VITALS: BP 114/70; PULSE 70; RESP 18; O2SAT 98
--- NOTE | 2017-05-12 11:38 | PCM.PNMED ---
Subjective Date of Service May 12, 2017 Subjective Pt has no events overnight. Did have elevated HR 140 per monitor but was during physical exam. VSS otherwise. Pt says pain right Hip improved. Exam Vital Signs Vital Sign - Last Date Time Temp Pulse Resp B/P Pulse Ox O2 Delivery O2 Flow Rate FiO2 05/12/17 05:51 37.1 58 16 110/68 100 Room Air 05/10/17 07:55 3.00 Intake and Output 05/11/17 05/11/17 05/12/17 Cumulative From/Thru 15:00 23:00 07:00 05/09/17 13:12 - 05/12/17 06:39 Intake Total 800 ml 1050 ml 1674 ml 7246 ml Output Total 1150 ml 850 ml 1500 ml 4300 ml Balance -350 ml 200 ml 174 ml 2946 ml Intake Oral 800 ml 1050 ml 800 ml 4350 ml IV Total 874 ml 2596 ml Packed Cells 300 ml Output Urine Total 900 ml 850 ml 1500 ml 4050 ml Stool Total 250 ml 250 ml # Bowel Movements 2 0 5 Exam Gen: NAD, AOx4, HEENT: NCAT, PERRLA, EOMI, MMM, sclera anicteric. Neck: Soft, supple, no thyromegaly/JVD/LAD. Resp: CTAB, no R/R/W. CV: S1 S2, Irreg, Abd: Soft, (+) BS, NT/ND, no guarding/rebound/organomegaly. Ext: +PP, R Thigh- +1 pitting edema. Some TTP. Skin: warm/dry/intact No visible hematoma on R buttock or Abd. Neuro/Psych: Cooperative, appr mood/affect. CN II-XII grossly intact. No focal deficits. Lab and Diagnostics Result Diagram: 05/12/1752805/12/17528 X-Rays, CTs and MRIs CT ABDOMEN AND PELVIS WITH CONTRAST ([id number]) IMPRESSION: 1. No definite acute abnormality within the abdomen or pelvis. 2. Resolving anterior left abdominal wall hematoma. 3. Right gluteal/posterior proximal thigh soft tissue mass has developed in the interim with surrounding edema, most likely representing a hematoma. Clinical correlation is recommended. An ultrasound would be helpful for better evaluation to exclude the possibility of a developing soft tissue mass. 4. Moderate-sized hiatal hernia is more pronounced on the current study. 5. Nonobstructing left renal calculus. 6. No bowel obstruction. 7. Splenomegaly. 8. Multilevel degenerative and postoperative changes of the imaged spine and pelvis. There is chronic avulsion of the lesser trochanter of the right hip, which is displaced anterior to the femoral head, unchanged since the prior study. No acute osseous abnormalities are evident. 9. Cardiomegaly. Dictated by: Shad Arevalo M.D. on 05/09/2017 at 13:39 Assessment & Plan Osmar Gegier is an 87-year-old man with past medical history significant for atrial fibrillation on warfarin, recent rectus sheath hematoma and recent right hip intratrochanteric fracture with a pinning ORIF procedure with recurrent chronic anemia due to various bleeds without history of GI bleed who presented to the [facility] emergency department from [facility] due to dropping H&H. #Acute blood loss anemia secondary to glutea/posterior proximal thigh hematoma post surgery, present on admission, stable. -Patient seems to have suffered multiple bleeds over the last few months. He had a rectus sheath bleed and now presents with what appears to be a hematoma post ORIF -Patient will be transfused 2 units of blood by emergency department. -We will not be reversing the patient's warfarin as patient suffered a TIA once his warfarin was reversed -Hemoglobin has been stable after transfusion. -No worsening of the hematoma. -Hb has been stable. #Atrial fibrillation and rapid ventricular response, present on admission, active -Likely exacerbated by patient's anemia -Status post IV Cardizem 2 doses. Transition to by mouth Cardizem and metoprolol. Rate has been controlled over 24 hours -We will continue by mouth Cardizem and metoprolol at home doses. -Coumadin was held, INRs now subtherapeutic. Had discussion with patient regarding the risk benefit of continuing Coumadin despite history of falls. Patient does have a caregiver that assist him. Patient is undergoing physical therapy and thinks he is getting stronger. He says that he understands that he might has severe bleeds while being on Coumadin.Patient says that he would like to continue the Coumadin prevent possible stroke. Have encouraged him to further discuss this with his family and family doctor - resumed coumadin. #Recent right femur fracture status post ORIF during past admission. -Careful physical therapy given patient's bleed. -She appears to have chronic +1 pitting edema of right thigh. -Venous duplex right extremity performed- ruled out DVT #Severe hearing loss #Hypertension -Continue home medications #Gout -Continue home medications CODE STATUS: DNR/DNI Dispo- -Discussion with patient regarding the risk benefit of continuing Coumadin despite history of falls. Patient does have a caregiver that assists him. Patient is undergoing physical therapy and thinks he is getting stronger. He says that he understands risk of bleeds while being on Coumadin. Patient says that he would like to continue the Coumadin to prevent possible stroke and have encouraged him to further discuss this with his family and PCP. - Can return to [facility] once med cleared to continue his physical therapy . - Repeat CBC in 2 days to evaluate Anemia. Resuscitation Status: DNR/DNI:Do Not Resuscitate/Intubate Nick Schreiber MD May 12, 2017 11:38
--- NOTE | 2017-05-12 11:40 | PCM.DIMED ---
Discharge Instructions Date of Service May 12, 2017 Dates of Hospitalization May 09, 2017 at 15:47 Discharge Diagnosis Discharge Diagnosis #Acute blood loss anemia secondary to glutea/posterior proximal thigh hematoma post surgery, present on admission, stable. #Atrial fibrillation and rapid ventricular response, present on admission, active #Recent right femur fracture status post ORIF during past admission. #Hypertension #Gout Diet Discharge Diet: Heart Healthy Patient Instructions Patient Instructions -Discussion with patient regarding the risk benefit of continuing Coumadin despite history of falls. Patient does have a caregiver that assists him. Patient is undergoing physical therapy and thinks he is getting stronger. He says that he understands risk of bleeds while being on Coumadin. Patient says that he would like to continue the Coumadin to prevent possible stroke and have encouraged him to further discuss this with his family and PCP. - Can return to [facility] to continue his physical therapy . - Repeat CBC in 2 days to evaluate Anemia. - Check INR daily until 2-3. Follow-up Provider: Naveen Clay MD Follow-up with PCP in: 1 week Nick Schreiber MD May 12, 2017 11:40
--- NOTE | 2017-05-12 11:47 | NUR ---
Detention Transfer: Called and spoke with Cheri Rome CM at [facility] [phone] let her know patient is likely to discharge back to [facility] today and need to have him reviewed for authorization. Spoke with Jaret at [facility] let him know patient is likely to return today and I would update him once we have authorization and transport time. Updated COMPUTER SYSTEM SPECIALIST Addendum: 05/12/17 at 1235 by LOVE ARTIS CM Cheri Rome CM at [facility] is wanting to see PT in with patient today and see where patient is at physically. She is also wondering if patient is actually ready for discharge. Spoke with and he did addendum along with d/c instructions to reflect patient is medically clear. Left message for PT requesting STAT evaluation and left message for Cheri updating her on progress. Updated COMPUTER SYSTEM SPECIALIST Addendum: 05/12/17 at 1502 by LOVE ARTIS CM Arranged ALS via [facility] citrus picker at 1600, updated COMPUTER SYSTEM SPECIALIST about citrus picker and transportation. PCS form completed
--- NOTE | 2017-05-12 11:50 | NUR ---
Social Work: Attempted Initial Assessment/Readiness for Discharge/Multi-Disciplinary Rounds D: EMR reviewed. Pt is on day 3 of hospitalization. Per rounds, pt is medically stable for discharge today. Per EMR (Problem List) pt has altered mental status. No RN notes documenting altered mental status for this hospital admission. SW Elderly Companion placed T/C to Jaret at [facility] to determine pt's cognitive baseline. Per Jaret, pt does is not an accurate historian for an assessment and suggested SW place T/C to son for assessment. Per [facility], pt has Dementia at baseline. SW met with pt at bedside - pt not alert. SW placed T/C to pt's DPOA/son Bridger Ekle and left voicemail requesting return call. SW will await return call to complete initial assessment. T/C to Jaret at [facility] - confirming they can take pt back today and are working on LTC plan regarding pt's Dementia. A: Pt who has Dementia at baseline. Pt who resides and [facility] for rehabilitation and for whom a SNF has been deemed medically necessary for this hospital stay. P: SW Elderly Companion to schedule transport time and update SW/RN. SW will await T/C from pt's son to complete assessment. SW will continue to follow. ELSA Garg
--- NOTE | 2017-05-12 11:58 | NUR ---
Evaluation completed. Please go to "Notes" then click on "Assessments and Notes" (bottom left corner of screen). Then select appropriate discipline tab on top of screen.
[2017-05-12 12:24] VITALS: PULSE 83
--- NOTE | 2017-05-12 12:26 | PCM.PHAPRO ---
Progress Date of Service: May 12, 2017 Warfarin dosing Date May 12-Apr INR 1.55 1.37 INR change -0.18 Warf Dose 6MG 6MG Ligia Calvillo PharmD May 12, 2017 12:25
--- NOTE | 2017-05-12 14:37 | NUR ---
Social Work: Initial Assessment/Readiness for Discharge/Multi-Disciplinary Rounds D:EMR reviewed. Please see Initial Assessment linked to this note for more information. Pt is a 87 y/o male admitted for anemia, AFIB w/RVR per H&P. Pt has a re-admit risk score of 4. SW received T/C from pt's [id number] and son (DPOA) to conduct initial assessment. Pt has dementia at baseline and lives at [facility] for SNF rehabilitation. SW explained role and provided phone number. SW left "Your Discharge Planning Checklist" in room and encouraged pt's family to contact SW for any discharge planning questions. Pt's insurance is [employer]. PCP is Naveen Clay MD. DPOA/advanced directive ppw discussed - pt has completed and SW requested copy. Per rounds, pt is medically stable for discharge today but will need BLS transport. order received. SW Regional Training Manager to coordinate BLS transport and transfer packet. SW to update family with transport time. A: Pt for whom return to SNF, via BLS, for rehabilitation has been deemed medically necessary. P: SW Regional Training Manager to coordinate SNF transfer via BLS. SW Regional Training Manager to update SW who will update family with transport time. SW will continue to follow. ELSA Garg Addendum: 05/12/17 at 1443 by MARLY LOVE SS Amended: Links added.
--- NOTE | 2017-05-12 16:13 | NUR ---
Discharge Pt was discharged to [facility] via BLS transport at 1410 hrs. Pt alert and oriented. VSS. PIV removed intact. Telemetry discontinued. Pt had no c/o pain. All personal possessions sent with pt. Report was called to Humera BALL at [facility].
--- NOTE | 2017-05-20 07:25 | PCM.DC.MED ---
Discharge Summary Date of Service May 20, 2017 Dates of Hospitalization Date of Hospital Admission May 09, 2017 at 15:47 Date of Discharge: May 12, 2017 Providers: Admitting Physician: Nick Schreiber MD Primary Care Physician: Naveen Clay MD Attending Physician: Nick Schreiber MD Diagnosis at Time of Discharge Diagnosis at Time of Discharge #Acute blood loss anemia secondary to glutea/posterior proximal thigh hematoma post surgery, present on admission, stable. #Atrial fibrillation and rapid ventricular response, present on admission, active #Recent right femur fracture status post ORIF during past admission. #Hypertension #Gout Procedures XRay, CTs & MRIs CT ABDOMEN AND PELVIS WITH CONTRAST ([id number]) IMPRESSION: 1. No definite acute abnormality within the abdomen or pelvis. 2. Resolving anterior left abdominal wall hematoma. 3. Right gluteal/posterior proximal thigh soft tissue mass has developed in the interim with surrounding edema, most likely representing a hematoma. Clinical correlation is recommended. An ultrasound would be helpful for better evaluation to exclude the possibility of a developing soft tissue mass. 4. Moderate-sized hiatal hernia is more pronounced on the current study. 5. Nonobstructing left renal calculus. 6. No bowel obstruction. 7. Splenomegaly. 8. Multilevel degenerative and postoperative changes of the imaged spine and pelvis. There is chronic avulsion of the lesser trochanter of the right hip, which is displaced anterior to the femoral head, unchanged since the prior study. No acute osseous abnormalities are evident. 9. Cardiomegaly. Dictated by: Shad Arevalo M.D. on 05/09/2017 at 13:39 Brief History Per HPI from admitting physician Osmar Fely is an 87-year-old man with past medical history significant for atrial fibrillation on warfarin, recent rectus sheath hematoma and recent right hip intratrochanteric fracture with a pinning ORIF procedure with recurrent chronic anemia due to various bleeds without history of GI bleed who presented to the [facility] emergency department from [facility] due to dropping H&H. Patient was recently admitted on 04/04/2017 for the rectus hematoma which was monitored but no surgical intervention was necessary and his warfarin was stopped however patient had a TIA without warfarin so it was actually reinitiated and today he presents with a drop in H&H. Per patient report his H&H is ago was 8.7 and 25.8 respectively. Patient denies any hematochezia, hematemesis, hemoptysis, melena, coffee-ground emesis. A stool guaiac was obtained in the emergency department was negative. In the emergency department his vital signs were notable for a heart rate in the 130s to 150s in atrial fibrillation. He was given 20 mg of IV Cardizem which slowed his rate down to the 90s. A CT abdomen and pelvis was obtained to evaluate for possible recurrent source of bleeding and a likely hematoma is apparent in the patient's right hip where he recently underwent surgery. He was given 2 units of PRBC. Patient states that he feels pretty close to his normal self right now. He denies any significant right hip pain. The patient is accompanied by his [id number] who states that the patient was looking quite a bit better than when he first arrived. Hospital Course Osmar Geiger is an 87-year-old man with past medical history significant for atrial fibrillation on warfarin, recent rectus sheath hematoma and recent right hip intratrochanteric fracture with a pinning ORIF procedure with recurrent chronic anemia due to various bleeds without history of GI bleed who presented to the [facility] emergency department from [facility] due to dropping H&H. #Acute blood loss anemia secondary to glutea/posterior proximal thigh hematoma post surgery, present on admission, stable. -Patient seems to have suffered multiple bleeds over the last few months. He had a rectus sheath bleed and now presents with what appears to be a hematoma post ORIF -Patient will be transfused 2 units of blood by emergency department. -We will not be reversing the patient's warfarin as patient suffered a TIA once his warfarin was reversed -Hemoglobin has been stable after transfusion. -No worsening of the hematoma. -Hb has been stable. #Atrial fibrillation and rapid ventricular response, present on admission, active -Likely exacerbated by patient's anemia -Status post IV Cardizem 2 doses. Transition to by mouth Cardizem and metoprolol. Rate has been controlled over 24 hours -We will continue by mouth Cardizem and metoprolol at home doses. -Coumadin was held, INRs now subtherapeutic. Had discussion with patient regarding the risk benefit of continuing Coumadin despite history of falls. Patient does have a caregiver that assist him. Patient is undergoing physical therapy and thinks he is getting stronger. He says that he understands that he might has severe bleeds while being on Coumadin.Patient says that he would like to continue the Coumadin prevent possible stroke. Have encouraged him to further discuss this with his family and family doctor - resumed coumadin. #Recent right femur fracture status post ORIF during past admission. -Careful physical therapy given patient's bleed. -She appears to have chronic +1 pitting edema of right thigh. -Venous duplex right extremity performed- ruled out DVT #Severe hearing loss #Hypertension -Continue home medications #Gout -Continue home medications CODE STATUS: DNR/DNI Dispo- -Discussion with patient regarding the risk benefit of continuing Coumadin despite history of falls. Patient does have a caregiver that assists him. Patient is undergoing physical therapy and thinks he is getting stronger. He says that he understands risk of bleeds while being on Coumadin. Patient says that he would like to continue the Coumadin to prevent possible stroke and have encouraged him to further discuss this with his family and PCP. - Can return to [facility] once med cleared to continue his physical therapy . - Repeat CBC in 2 days to evaluate Anemia. Exam Test 05/09/17 13:15 05/09/17 18:50 05/12/17 05:05 05/12/17 05:29 Magnesium Level 2.1mg/dL (1.6-2.6) Lipase 28U/L (13-60) Urine Color Dark yellow (YELLOW) Urine Appearance Hazy (CLEAR,HAZY) Urine pH 5.0 (5.0-8.0) Urine Specific [place] 1.020 (1.003-1.035) Urine Protein 30mg/dL (NEG,TRACE) Urine Glucose (UA) Negativemg/dL (NEGATIVE) Urine Ketones Negativemg/dL (NEGATIVE) Urine Occult Blood Negative (NEGATIVE) Urine Nitrite Negative (NEGATIVE) Urine Bilirubin Negative (NEGATIVE) Urine Urobilinogen 2mg/dL (NORMAL) Urine Leukocyte Esterase Negative (NEGATIVE) Urine RBC 0-2/hpf (0-2) Urine WBC 0-5/hpf (0-5) Urine Epithelial Cells Occasional/hpf (NONE-MOD) Urine Crystals None seen (NONE SEEN) Urine Bacteria Few/hpf (NONE-FEW) Urine Hyaline Casts None/lpf (NONE) Urine Granular Casts Rare (NONE SEEN) Urine Waxy Casts None seen (NONE SEEN) Urine Red Blood Cell Casts None seen (NONE SEEN) Urine White Blood Cell Casts None seen (NONE SEEN) Urine Mucus Present (None Seen) Urine Trichomonas None seen (NONE SEEN) Urine Yeast None (NONE SEEN) Urinalysis Comment None Urine Culture Reflexed Not indicated Prothrombin Time 14.7sec (8.1-12.5) Prothromb Time International Ratio 1.37ratio White Blood Count 6.1th/mm3 (3.8-10.1) Red Blood Count 2.80mil/mm3 (4.40-5.80) Hemoglobin 8.0g/dL (13.8-17.2) Hematocrit 25.9% (41.0-50.0) Mean Corpuscular Volume 92.5fL (81-100) Mean Corpuscular Hemoglobin 28.6pg (27.0-35.0) Mean Corpuscular Hemoglobin Concent 30.9% (32.0-37.0) Red Cell Distribution Width 18.8% (12.3-15.4) Platelet Count 214bil/L (150-400) Neutrophils (%) (Auto) 74.4% (40-74) Lymphocytes (%) (Auto) 8.0% (14-46) Monocytes (%) (Auto) 10.2% (4-12) Eosinophils (%) (Auto) 6.7% (0-5) Basophils (%) (Auto) 0.2% (0-3) Sodium Level 136mEq/L (134-144) Potassium Level 4.3mEq/L (3.5-5.2) Chloride Level 101mEq/L (97-108) Carbon Dioxide Level 23mmol/L (18-29) Blood Urea Nitrogen 25mg/dL (8-27) Creatinine 0.84mg/dL (0.76-1.27) Estimat Glomerular Filtration Rate 91mL/min (>59) Glucose Level 110mg/dL (60-99) Calcium Level 8.1mg/dL (8.5-10.1) Total Bilirubin 1.1mg/dL (0.0-1.2) Aspartate Amino Transf (AST/SGOT) 17U/L (0-50) Alanine Aminotransferase (ALT/SGPT) 14U/L (0-44) Alkaline Phosphatase 86U/L (25-160) Total Protein 4.8g/dL (6.4-8.4) Albumin 2.8g/dL (3.4-5.0) Discharge Medications Discharge Medications Allopurinol (Allopurinol) 100 Mg Tablet 100 MG PO DAILY (Reported) Antiox#10/Om3/Dha/Epa/Lut/Zeax (I-Caps with Lutein-[place] 3 Sfg) 1 Each Capsule 1 EACH PO DAILY (Reported) Aspirin (Aspirin) 81 Mg Tablet 81 MG PO DAILY Prescribed by: CARISA SANDOVAL DO Calcium Carbonate (Tums) 500 Mg Tab.chew 500 MG PO TID (Reported) Cholecalciferol (Vitamin D3) (Vitamin D) 1,000 Unit Capsule 1,000 UNIT PO DAILY (Reported) Diltiazem ER (Cardizem CD) 180 Mg Cap.er.24h 180 MG PO DAILY Prescribed by: RUBY TORRES MD Docusate Sodium (Docusate Sodium) 250 Mg Capsule 250 MG PO BID (Reported) Ferrous Sulfate (Ferrous Sulfate) 325 Mg Tablet 325 MG PO DAILY (Reported) Metoprolol Tartrate (Metoprolol Tartrate) 100 Mg Tablet 100 MG PO BID (Reported ) Mv,Minerals/FA/Lycopene/Ginkgo (One Daily For Men 50+ Adv Tab) 1 Each Tablet 1 EACH PO DAILY (Reported) Omeprazole (Omeprazole) 20 Mg Tablet.dr 20 MG PO DAILY (Reported) Polyethylene Glycol 3350 (Miralax) 17 Gm Powd.pack 17 GM PO BID (Reported) Potassium Chloride ER (Klor-Con M15) 15 Meq Tablet 15 MEQ PO DAILY (Reported) Sennosides (Senna) 8.6 Mg Tablet 8.6 MG PO DAILY (Reported) Tamsulosin ER (Tamsulosin ER) 0.4 Mg Cap.er.24h 0.4 MG PO QAM (Reported) Warfarin Sodium (Warfarin Sodium) 6 Mg Tablet 5.5 MG PO DAILY (Reported) As needed Acetaminophen (Acetaminophen) 325 Mg Capsule 650 MG PO Q4H PRN PRN For Pain ( Reported) Bisacodyl (Dulcolax Rectal) 10 Mg Supp.rect 10 MG RC DIRECTED PRN PRN For Constipation (Reported) Dextran 70/Hypromellose/Pf (Artificial Tears Drops) 1 Each Droperette 1 DROP BOTH_EYES BID PRN PRN dry eye Prescribed by: GISELE FITZGERALD MD Magnesium Hydroxide (Milk of Magnesia) 400 Mg/5 Ml Oral.susp 30 ML PO DIRECTED PRN PRN For Constipation (Reported) Na Phos,M-B/Na Phos,Di-Ba (Fleet Enema) 133 Ml Enema 133 ML RC DIRECTED PRN PRN For Constipation (Reported) oxyCODONE (oxyCODONE) 5 Mg Tablet 5-10 MG PO Q4H PRN PRN For Pain (Reported) Followup Plan Discharge Diet: Heart Healthy Patient Instructions -Discussion with patient regarding the risk benefit of continuing Coumadin despite history of falls. Patient does have a caregiver that assists him. Patient is undergoing physical therapy and thinks he is getting stronger. He says that he understands risk of bleeds while being on Coumadin. Patient says that he would like to continue the Coumadin to prevent possible stroke and have encouraged him to further discuss this with his family and PCP. - Can return to [facility] to continue his physical therapy . - Repeat CBC in 2 days to evaluate Anemia. - Check INR daily until 2-3. Follow-up Provider: Naveen Clay MD Follow-up with PCP in: 1 week Nick Schreiber MD May 20, 2017 07:25
== END 2017-05-12 16:15 | DRG 920 ==
LOC: SED 13:05 → OSC 15:47
PROVIDERS: ADMIT Internal Medicine; ATTEND Internal Medicine
PROC: 3E033RZ Introduction of Antiarrhythmic into Peripheral Vein, Percutaneous Approach (ICD-10-PCS; principal; 2017-05-09)
PROC: 30233N1 Transfusion of Nonautologous Red Blood Cells into Peripheral Vein, Percutaneous Approach (ICD-10-PCS; 2017-05-09)
DX: L76.32 Postprocedural hematoma of skin and subcutaneous tissue following other procedure (principal); D62 Acute posthemorrhagic anemia; I71.4 Abdominal aortic aneurysm, without rupture; I10 Essential (primary) hypertension; K44.9 Diaphragmatic hernia without obstruction or gangrene; K21.9 Gastro-esophageal reflux disease without esophagitis; I48.2 Chronic atrial fibrillation; Y83.8 Other surgical procedures as the cause of abnormal reaction of the patient, or of later complication, without mention of misadventure at the time of the procedure; Z66 Do not resuscitate; M10.9 Gout, unspecified; H91.90 Unspecified hearing loss, unspecified ear; Z79.01 Long term (current) use of anticoagulants; Z86.73 Personal history of transient ischemic attack (TIA), and cerebral infarction without residual deficits; Z88.0 Allergy status to penicillin; Z79.82 Long term (current) use of aspirin; Z85.46 Personal history of malignant neoplasm of prostate

== ENCOUNTER 2017-05-10 01:32 | Day surgery (SDC) | payer MEDICARE ==
[~2017-05-10 01:32] MED LIST changes: +WARF6TAB6 PO
[2017-05-10] MEDS ORDERED: Furosemide 10 mg/mL 2 mL Inj IV ONE (08:00)
[2017-05-10] MEDS ORDERED: diphenhydrAMINE 2.5 mg/mL 5 mL Syrup PO ONE (08:00)
== END 2017-05-10 23:59 | disposition home or self-care (01) ==
LOC: MOCO 01:32
PROVIDERS: ATTEND Advanced Practice Midwife
DX: D64.9 Anemia, unspecified (principal)

== ENCOUNTER 2017-06-20 14:06 | Emergency (ER) | payer MEDICARE ==
[~2017-06-20] VITALS: Ht 177.8 cm; Wt 72.3 kg
[~2017-06-20 14:06] MED LIST changes: +OXYC-530 PO; -OXYC5TAB72 PO
[2017-06-20 14:16] VITALS: BP 145/88; PULSE 156; RESP 18; O2SAT 99
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
[2017-06-20 14:32] LABS: BASOPHILS % (AUTO) 0.3 % (0-3); EOSINOPHILS % (AUTO) 2.9 % (0-5); Mean Corpuscular Hemoglobin 29.9 pg (27.0-35.0); NEUTROPHILS % (AUTO) 68.1 % (40-74); Platelet Count 157 bil/L (150-400)
[2017-06-20 14:49] LABS: INR 1.37 ratio
--- NOTE | 2017-06-20 14:49 | DRSVH ---
PROCEDURE: X-RAY CHEST ONE VIEW, PORTABLE ([id number]) INDICATIONS: tachycardia TECHNIQUE: One view of the chest was acquired. COMPARISON: [facility], CR, XR CHEST 1VW (PORTABLE), 03/28/2017, 15:13. FINDINGS: Surgical changes and devices: None. Lungs and pleura: No pleural effusions or pneumothorax. Lungs are clear. The lung volumes are larg e and the diaphragms are flattened suggesting emphysema. Mediastinum: Mediastinal contours appear normal. Heart size is enlarged, as before. Bones and chest wall: No suspicious bony lesions. Multiple healed rib fractures are noted. Overlying soft tissues appear unremarkable. IMPRESSION: 1. No acute pulmonary findings. 2. Cardiomegaly. Dictated by: Jazmín Campo M.D. on 06/20/2017 at 14:47 Approved by: Jazmín Campo M.D. on 06/20/2017 at 14:48
[2017-06-20] MEDS ORDERED: Diltiazem 5 mg/mL 5 mL Inj IVPUSH ONE (14:50)
[2017-06-20 15:07] VITALS: BP 120/86; PULSE 113; RESP 17; O2SAT 98
[2017-06-20 15:08] LABS: Magnesium 2.1 mg/dL (1.6-2.6)
[2017-06-20 15:09] LABS: TROPONIN T < 0.010 ug/L (0.0-0.011)
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
[2017-06-20 15:58] VITALS: BP 127/62; PULSE 91; RESP 18; O2SAT 95
[2017-06-20] MEDS ORDERED: DILT240C85 PO (16:28)
== END 2017-06-20 16:43 | disposition home or self-care (01) ==
LOC: SED 14:06
DX: I48.91 Unspecified atrial fibrillation (principal); R79.1 Abnormal coagulation profile; I10 Essential (primary) hypertension; K21.9 Gastro-esophageal reflux disease without esophagitis; M10.9 Gout, unspecified; Z87.442 Personal history of urinary calculi; Z86.73 Personal history of transient ischemic attack (TIA), and cerebral infarction without residual deficits; Z87.81 Personal history of (healed) traumatic fracture; Z85.3 Personal history of malignant neoplasm of breast; Z85.46 Personal history of malignant neoplasm of prostate; Z90.79 Acquired absence of other genital organ(s); Z90.89 Acquired absence of other organs; Z98.890 Other specified postprocedural states; Z87.891 Personal history of nicotine dependence; Z79.82 Long term (current) use of aspirin; Z79.01 Long term (current) use of anticoagulants; Z88.0 Allergy status to penicillin